=== PATIENT | male | born 1970 | race Caucasian/White ===

== ENCOUNTER 2023-10-21 09:50 | Outpatient (AMB) | payer OTHER, SELFPAY ==
--- NOTE | 2023-10-21 10:24 | A.OFFPC_ITS ---
Vital Signs 10/21/23 10:25 Height 6 ft 3 in Weight 193 lb BMI 24.1 BP 90/62 Blood Pressure Location Lt brachial Position Sitting Pulse 70 Pulse Source Pulse Oximeter Pulse Oximetry (%) 94 Oxygen Delivery Method Room Air Intake Visit Reasons: Estimating Manager Request PE Intake Note: Pt is here today as a New Patient to [facility] care Allergies Penicillins Allergy (Mild, Verified 11/10/23 09:19) hives Medication List - Last Reconciled 10/21/23 by Debbie Zuniga MD atorvastatin 40 mg PO BEDTIME omega 3-caf-keq-fish oil 60-90-500 mg (Fish Oil) 1 cap PO DAILY Tobacco use date assessed: 10/21/23 Dental Screening Dental Screen Date: 10/21/23 Did you have a dental visit in the last 12 months?: No Was dental information given to patient?: Patient declined HPI Estimating Manager Request PE HPI Details 53-year-old male, new to practice, here to establish care with new PCP. He has hyperlipidemia currently on atorvastatin 40 mg at night and takes [place] 3 fatty acid supplements. Has history of familial hypertriglyceridemia and has been off atorvastatin for the last 4 months, recently back on it a week ago, last fasting lipids done in [place] 2 weeks ago showed triglycerides and LDL cholesterol at 230 mg/dL. Has had 2 COVID vaccine and 1 booster does not get flu shots and has tetanus booster in last 4 years, and had the recombinant Shingrix vaccine 2 doses already. Patient states he had Cologuard testing approximately year and a half ago which came back negative. Complains of urinary frequency/urgency , but no dysuria, abdominal pain or back pain reported. [facility] Medical History History of fracture of clavicle History of fracture of left ankle Nocturia Familial hypertriglyceridemia Impaired fasting glucose Osteoarthritis Hyperlipidemia Surgical History History of bilateral hip arthroplasty Family History Father Substance use disorder Pancreatitis Alcoholism Familial hypertriglyceridemia Mother Mental health disorder Breast cancer, Onset Age: 72 Sister Mental health disorder Sister Mental health disorder Paternal Grandfather Familial hypertriglyceridemia Prostate cancer Social History Housing: House Patient Tobacco Use Status: Never used Tobacco e-Cigarette/Vaping Use: Never Used service: No Current occupational status: retired Cognitive needs: No Hearing needs: No Vision needs: Yes Questionnaire PHQ-9 Over the last 2 weeks, how often have you been bothered by any of the following problems? 1. Little interest or pleasure in doing things: not at all 2. Feeling down, depressed, or hopeless: not at all 3. Trouble falling or staying asleep, or sleeping too much: several days 4. Feeling tired or having little energy: not at all 5. Poor appetite or overeating: not at all 6. Feeling bad about yourself - or that you are a failure or have let yourself or your family down: not at all 7. Trouble concentrating on things, such as reading the newspaper or watching television: not at all 8. Moving or speaking so slowly that other people could have noticed. Or the opposite - being so fidgety or restless that you have been moving around a lot more than usual: not at all 9. Thoughts that you would be better off or of hurting yourself in some way: not at all Total score: 1 Depression Screening Interpretation: Negative Depression Screening Done: Yes 95327 - PHQ-9 Billing: Yes Source: Developed by Drs. Mustapha Yost, Gloria Barnhart, Jamie Espinal and colleagues, with an educational ruba from [employer]. Thrive Questionnaire Date Thrive assessed: 10/21/23 I am a: Patient What is your living situation today?: I have a steady place to live Within the past 12 months, did the food you bought not last and you didn't have the money to get more?: Never true Within the past 12 months, did you worry whether your food would run out before you got money to buy more?: Never true Do you have trouble paying for medicines?: No Do you have trouble getting transportation to medical appointments?: No Do you have trouble paying your heating and electricity bill?: No Do you have trouble taking care of your child, family member or friend?: No Do you have trouble with day-to-day activities such as bathing, preparing meals, shopping, managing finances, etc.?: No Are you currently unemployed and looking for a job?: Yes Are you interested in more education?: No THRIVE Score: 0 AUDIT C Alcohol Use Questionnaire (AUDIT-C) 1. How often do you have a drink containing alcohol?: Never Total Score: 0 GABBY-7 AMB Questionnaire GABBY-7 Date GABBY - 7 assessed: 10/21/23 Feeling nervous, anxious, or on edge: 1 = Several days Not being able to stop or control worryin = Not at all Worrying too much about different things: 1 = Several days Trouble relaxin = Several days Being so restless that it is hard to sit still: 0 = Not at all Becoming easily annoyed or irritable: 1 = Several days Feeling afraid as if something awful might happen: 0 = Not at all Total GABBY-7 score (0-4 normal; 5-9 mild; 10-14 moderate; 15-21 severe): 4 Source: Developed by Drs. Mustapha Yost, Gloria Barnhart, Jamie Espinal and colleagues, with an educational ruba from [employer]. GABBY-7 Assessment Billing GABBY-7 Assessment Tool: GABBY-7 Assessment 00924 Review of Systems Const Denies body aches, Denies fatigue, Denies headache(s) and Denies weakness Eyes Denies change in vision ENT Denies dizziness, Denies headache(s) and Denies nasal congestion Card Denies chest pain, Denies lightheadedness, Denies palpitations and Denies dyspnea Resp Denies chest congestion, Denies cough, Denies dyspnea and Denies wheezing GI Denies abdominal pain, Denies change in bowel habits and Denies heartburn Denies hematuria, Denies difficulty urinating and Denies dysuria Musc Reports arthralgias, Denies muscle weakness and Reports stiffness Skin/Breast Denies lesions and Denies rash Neuro Denies dizziness, Denies headache(s) and Denies weakness Psych Reports no additional complaints Endo Denies fatigue, Denies polydipsia, Denies polyuria and Denies palpitations [place]/Lymph Reports no additional complaints Aller/Immun Denies seasonal rhinorrhea and Denies wheezing Physical exam (Primary Care) Vital Signs: Last Vital Signs Pulse 70 10/21/23 10:25 BP 90/62 10/21/23 10:25 Pulse Ox 94 10/21/23 10:25 Oxygen Delivery Method Room Air 10/21/23 10:25 BMI result Body Mass Index 24.1 Tobacco/Smoking Status: Tobacco use Status Tobacco use date assessed 10/21/23 10/21/23 10:32 Patient Tobacco Use Status Never used Tobacco 10/21/23 10:32 e-Cigarette/Vaping Use Never Used 10/21/23 10:32 PHQ-9: PHQ-9 Score PHQ-9: Total score 7 10/21/23 10:34 Depression Screening Interpretation: Negative Thrive Assessment: Date of Thrive Assessment Date Thrive assessed 10/21/23 10/21/23 10:34 Const General: comfortable, no acute distress and alert Orientation/consciousness: patient oriented x3 Limitations: no limitations HENMT Ears: external ears normal, TM's normal bilaterally and EAC's normal General nose exam: Normal external nose present and No nasal discharge present Mouth: Normal oral and palatal mucosa present, oropharynx normal and moist mucous membranes Eyes General: appearance normal, both eyes and all related structures Conjunctivae: conjunctivae normal Sclerae: sclerae normal Pupils: Equal, round and reactive pupils present EOM: EOMs intact bilaterally Neck Neck: Yes full ROM, Yes no lymphadenopathy and Yes supple Resp Effort & Inspection: normal respiratory effort and able to speak in complete sentences Auscultation: clear to auscultation bilaterally Cardio Rate: regular rate Rhythm: regular rhythm Heart sounds: S1 normal heart sound present and S2 normal heart sound present GI Palpation (GI): Soft to palpation, nontender and no masses Auscultation: normal bowel sounds Back/Spine/Pelvis Back: No back tenderness Skin General skin exam: no rashes or lesions noted Neuro General: patient oriented x3, gait normal, tone normal, moves all extremities, Normal light touch and pain sensation and no focal motor deficits Cranial nerves: Yes CN's II-XII intact bilaterally and Yes Equal, round and reactive pupils present Cognition (Neuro): normal cognition Extrem General: Yes full ROM, Yes no joint enlargement, Yes no clubbing, cyanosis or edema and Yes no calf tenderness Psych Appearance: grossly normal and well kempt Mental Status: mental status grossly normal Speech and movement: Normal speech and movement present Affect: normal affect Attitude: cooperative Thought process: Normal thought process present Thought content: Normal thought content present, suicidality and no homicidality Assessment and Plan Assessment & Plan (1) Impaired fasting glucose: Code(s): R73.01 - Impaired fasting glucose (2) Osteoarthritis: Code(s): M19.90 - Unspecified osteoarthritis, unspecified site Qualifiers: Osteoarthritis location: unspecified site Osteoarthritis type: primary Qualified Code(s): M19.91 - Primary osteoarthritis, unspecified site (3) Familial hypertriglyceridemia: Code(s): E78.1 - Pure hyperglyceridemia (4) Urinary hesitancy: Code(s): R39.11 - Hesitancy of micturition (5) Urinary urgency: Code(s): R39.15 - Urgency of urination Plan Fasting labs ordered, continued on current medication namely atorvastatin and [place] 3 fatty acid supplements, reinforced importance of following a low- cholesterol diet and getting regular exercise. Orders: Orders Lipid Panel 12/02/23 R73.01 - Impaired fasting glucose, M19.90 - Unspecified osteoarthritis, unspecified site, E78.1 - Pure hyperglyceridemia Comprehensive [place]. Panel Fast 12/02/23 R73.01 - Impaired fasting glucose, M19.90 - Unspecified osteoarthritis, unspecified site, E78.1 - Pure hyperglyceridemia Uric Acid 12/02/23 R73.01 - Impaired fasting glucose, M19.90 - Unspecified osteoarthritis, unspecified site, E78.1 - Pure hyperglyceridemia PSA,Total (Free>4and<10) 10/21/23 R35.1 - Nocturia, R39.11 - Hesitancy of micturition, R39.15 - Urgency of urination Vitamin D 25-OH Total 12/02/23 R73.01 - Impaired fasting glucose, M19.90 - Unspecified osteoarthritis, unspecified site, E78.1 - Pure hyperglyceridemia Hemoglobin A1c 12/02/23 R73.01 - Impaired fasting glucose, M19.90 - Unspecified osteoarthritis, unspecified site, E78.1 - Pure hyperglyceridemia Coding Level of Care Code New Pt Level 4 (19762) Diagnoses Impaired fasting glucose R73.01 Primary osteoarthritis, unspecified site M19.91 Osteoarthritis location: unspecified site Osteoarthritis type: primary Familial hypertriglyceridemia E78.1 Urinary hesitancy R39.11 Urinary urgency R39.15 Additional Codes GABBY-7 Assessment Billing - GABBY-7 Assessment Tool: GABBY-7 Assessment [id number] ([id number])
[2023-10-21 10:25] VITALS: BP 90/62; PULSE 70; O2SAT 94; BMI 24.1
== END 2023-10-21 13:19 | disposition home or self-care (01) ==
PROVIDERS: PCP Internal Medicine; Visit Provider Internal Medicine
DX: R73.01 Impaired fasting glucose (principal); M19.91 Primary osteoarthritis, unspecified site; E78.1 Pure hyperglyceridemia; R39.11 Hesitancy of micturition; R39.15 Urgency of urination
CPT/HCPCS: 99204

== ENCOUNTER 2023-10-29 10:51 | Outpatient (AMB) | payer OTHER, SELFPAY ==
[2023-10-29 11:41] VITALS: BP 120/80; PULSE 83; TEMP 36.7; O2SAT 96; BMI 23.9
--- NOTE | 2023-10-29 11:41 | MHC.OFFWIV ---
Intake Vital Signs 10/29/23 11:41 Height 6 ft 3 in Weight 191 lb BMI 23.9 BP 120/80 Blood Pressure Location Lt brachial Position Sitting Pulse 83 Pulse Source Pulse Oximeter Temp 98.1 F Temp Source Temporal Artery Scan Pulse Oximetry (%) 96 Oxygen Delivery Method Room Air Intake Visit Reasons: EP congestion, ringing ears (masked) Intake Note: pt is her today for congestion ringing ears started 2 weeks ago Patient Tobacco Use Status: Never used Tobacco Allergies Penicillins Allergy (Mild, Verified 10/29/23 11:44) hives Do you need a note to return to daycare/school/sports/work: No HPI EP congestion, ringing ears (masked) HPI Details This is a 53-year-old male patient who presents to the walk-in clinic today with a 2 week history of nasal and sinus congestion, productive cough with yellow/green sputum, and has now developed pressure and a ringing sensation in his ears. He states this started with a cold virus about 2 weeks ago after traveling. Treated this with [id number]-lrxocqg cold/flu products, and although he does feel somewhat better, he continues to have symptoms as described. Denies any fever or chills. Denies any shortness of breath. Denies any GI symptoms. [facility] Medical History History of fracture of clavicle History of fracture of left ankle Nocturia Familial hypertriglyceridemia Impaired fasting glucose Osteoarthritis Hyperlipidemia Surgical History History of bilateral hip arthroplasty Family History Father Substance use disorder Pancreatitis Alcoholism Familial hypertriglyceridemia Mother Mental health disorder Breast cancer, Onset Age: 72 Sister Mental health disorder Sister Mental health disorder Paternal Grandfather Familial hypertriglyceridemia Prostate cancer Social History Housing: House Patient Tobacco Use Status: Never used Tobacco e-Cigarette/Vaping Use: Never Used service: No Current occupational status: retired Cognitive needs: No Hearing needs: No Vision needs: Yes Review of Systems Const All systems reviewed & are unremarkable except as noted in HPI and below Physical Exam Vital Signs: Last Vital Signs Temp 98.1 F 10/29/23 11:41 Pulse 83 10/29/23 11:41 BP 120/80 10/29/23 11:41 Pulse Ox 96 10/29/23 11:41 Oxygen Delivery Method Room Air 10/29/23 11:41 BMI result Body Mass Index 23.9 Const General: cooperative and no acute distress HEENT Head: Yes normal to inspection Ears: hearing grossly normal bilaterally, external ears normal and TM abnormal (Bilateral TM erythema, serosang effusion, R>L) wth effusion General nose exam: Normal external nose present and Nasal discharge present mucoid Face and sinus: Yes sinus tenderness ( frontal and maxillary) Throat: Yes posterior oropharynx abnormal (mild erythema) Neck Neck: Yes no lymphadenopathy Resp Effort & Inspection: normal respiratory effort Auscultation: clear to auscultation bilaterally Cardio Rate: regular rate Rhythm: regular rhythm Skin General skin exam: no rashes or lesions noted Extrem General: Yes capillary refill normal and Yes no clubbing, cyanosis or edema Psych Appearance: grossly normal Mental Status: mental status grossly normal Speech and movement: Normal speech and movement present Assessment & Plan Assessment & Plan (1) Bilateral otitis media with effusion: Code(s): H65.93 - Unspecified nonsuppurative otitis media, bilateral Plan: Patient has sinusitis with bilateral OM. PCN allergy listed, however patient reports this was only hives and he was very young, and he is unsure of validity of this allergy. He would like to try the augmentin. We reviewed risks and signs/symptoms of allergic reaction. If this occurs he will stop medication and take antihistamine such as benadryl and call office for change in rx. He can continue to take Tylenol/Motrin as needed for symptom management. He will return to the clinic or PCP if he does not improve with treatment. Medications: New amoxicillin-pot clavulanate 875-125 mg Take twice a day for 7 days 1 tab PO BID 7 days 14 tabs 0RF H65.92 - Unspecified nonsuppurative otitis media, left ear Coding Level of Care Code Est Pt Level 4 (68201) Diagnoses Bilateral otitis media with effusion H65.93
== END 2023-10-29 12:35 | disposition home or self-care (01) ==
PROVIDERS: PCP Internal Medicine; Visit Provider Nurse Practitioner Family
DX: H65.93 Unspecified nonsuppurative otitis media, bilateral (principal)
CPT/HCPCS: 99214

== ENCOUNTER 2023-11-10 09:08 | Outpatient (AMB) | payer OTHER, SELFPAY ==
[2023-11-10 09:17] VITALS: BP 100/72; PULSE 81; O2SAT 96; BMI 23.6
--- NOTE | 2023-11-10 09:17 | MHC.OFFWIV ---
Intake Vital Signs 11/10/23 09:17 Height 6 ft 3 in Weight 189 lb 3 oz BMI 23.6 BP 100/72 Blood Pressure Location Rt brachial Position Sitting Pulse 81 Pulse Source Pulse Oximeter Pulse Oximetry (%) 96 Oxygen Delivery Method Room Air Intake Visit Reasons: EP ?Ear infection Patient Tobacco Use Status: Never used Tobacco Allergies Penicillins Allergy (Mild, Verified 11/10/23 09:19) hives Medication List - Last Reconciled 11/10/23 by Gael Reed MD atorvastatin 40 mg PO BEDTIME omega 4-klt-zfi-fish oil 60-90-500 mg (Fish Oil) 1 cap PO DAILY Do you need a note to return to daycare/school/sports/work: No HPI EP ?Ear infection HPI Details Patient is a 53-year-old gentleman came in today to be evaluated for possible sinus infection Which has started 3 weeks ago Patient says that after the sinus pain over his cheeks he started having pain in his ears so he was evaluated in walk-in clinic and was prescribed antibiotic He felt better but now his symptoms are back. He still have fullness in his ear and having green discharge from his nose with postnasal drip There is no fever no chills no shortness a breath there is no cough On examination his ears showed no signs of infection He is tender over maxillary sinus on the right side I am treating him with a course of azithromycin patient is already using saline to keep his sinuses clean [facility] Medical History History of fracture of clavicle History of fracture of left ankle Nocturia Familial hypertriglyceridemia Impaired fasting glucose Osteoarthritis Hyperlipidemia Surgical History History of bilateral hip arthroplasty Family History Father Substance use disorder Pancreatitis Alcoholism Familial hypertriglyceridemia Mother Mental health disorder Breast cancer, Onset Age: 72 Sister Mental health disorder Sister Mental health disorder Paternal Grandfather Familial hypertriglyceridemia Prostate cancer Social History Housing: House Patient Tobacco Use Status: Never used Tobacco e-Cigarette/Vaping Use: Never Used service: No Current occupational status: retired Cognitive needs: No Hearing needs: No Vision needs: Yes Review of Systems Const All systems reviewed & are unremarkable except as noted in HPI and below Physical Exam Vital Signs: Last Vital Signs Pulse 81 11/10/23 09:17 BP 100/72 11/10/23 09:17 Pulse Ox 96 11/10/23 09:17 Oxygen Delivery Method Room Air 11/10/23 09:17 BMI result Body Mass Index 23.6 Const General: no acute distress Orientation/consciousness: patient oriented x3 HEENT Other: Years shows no signs of infection, soreness with pressure right maxillary sinus Eyes General: appearance normal, both eyes and all related structures Resp Effort & Inspection: normal respiratory effort and able to speak in complete sentences Auscultation: clear to auscultation bilaterally Cardio Other: S1 S2 Neuro General: patient oriented x3 Psych Mental Status: mental status grossly normal Assessment & Plan Assessment & Plan (1) Acute sinusitis: Code(s): J01.90 - Acute sinusitis, unspecified Qualifiers: Sinusitis location: maxillary Recurrence: non-recurrent Qualified Code(s): J01.00 - Acute maxillary sinusitis, unspecified Plan Patient is a 53-year-old gentleman came in today to be evaluated for possible sinus infection Which has started 3 weeks ago Patient says that after the sinus pain over his cheeks he started having pain in his ears so he was evaluated in walk-in clinic and was prescribed antibiotic He felt better but now his symptoms are back. He still have fullness in his ear and having green discharge from his nose with postnasal drip There is no fever no chills no shortness a breath there is no cough On examination his ears showed no signs of infection He is tender over maxillary sinus on the right side I am treating him with a course of azithromycin patient is already using saline to keep his sinuses clean Medications: New azithromycin Take 2 tablets today then 1 daily 250 mg PO ONCE 6 tabs 0RF 5 days J06.9 - Acute upper respiratory infection, unspecified Coding Level of Care Code Est Pt Level 3 (77953) Diagnoses Acute non-recurrent maxillary sinusitis J01.00 Sinusitis location: maxillary Recurrence: non-recurrent
== END 2023-11-10 10:18 | disposition home or self-care (01) ==
PROVIDERS: PCP Internal Medicine; Visit Provider Internal Medicine
DX: J01.00 Acute maxillary sinusitis, unspecified (principal)
CPT/HCPCS: 99213

== ENCOUNTER 2023-12-09 09:15 | Outpatient (REF) | payer OTHER, SELFPAY ==
[2023-12-09 13:35] LABS: Estimated Average Glucose 111 mg/dL; Hemoglobin A1c % 5.5 % (<6.0)
[2023-12-09 14:03] LABS: Alanine Aminotransferase 28 U/L (0-40); Albumin Level 4.3 g/dL (3.5-5.0); Alkaline Phosphatase 74 U/L (39-117); Anion Gap 15 (12-20); Aspartate Amino Transferase 28 U/L (5-37); Bilirubin Total 0.6 mg/dL (0.0-1.0); Blood Urea Nitrogen 14 mg/dL (9-16); Calcium 9.5 mg/dL (8.4-10.2); Carbon Dioxide 26 mmol/L (22-29); Chloride 105 mmol/L (96-108); Cholesterol 148 mg/dL (<200); Estimated Glomerular Filt Rate > 60; Glucose Fasting 96 mg/dL (60-99); HDL Cholesterol 58 mg/dL (>40); LDL Cholesterol Calculated 70 mg/dL (<100); Potassium 4.3 mmol/L (3.3-5.1); Sodium 142 mmol/L (135-145); Total Protein 7.5 g/dL (6.5-8.0); Triglycerides 101 mg/dL (<150); Uric Acid 6.7 mg/dL (3.4-7.0); Vitamin D 25-OH Total 96.4 ng/mL (>30)
== END 2023-12-09 09:16 | disposition home or self-care (01) ==
LOC: HO.HMGCLDS 09:15
PROVIDERS: PCP Internal Medicine; Visit Provider Internal Medicine
DX: R73.01 Impaired fasting glucose (principal); M19.90 Unspecified osteoarthritis, unspecified site; E78.1 Pure hyperglyceridemia
CPT/HCPCS: 36415; 80053; 80061; 82306; 83036; 84550

== ENCOUNTER 2023-12-21 10:51 | Outpatient (AMB) | payer OTHER, SELFPAY ==
[2023-12-21 11:15] VITALS: BP 100/60; PULSE 65; O2SAT 96; BMI 23.7
--- NOTE | 2023-12-21 11:15 | MHC.PC.OV ---
Vital Signs 12/21/23 11:15 Height 6 ft 3 in Weight 190 lb BMI 23.7 BP 100/60 Blood Pressure Location Rt brachial Position Sitting Pulse 65 Pulse Source Pulse Oximeter Pulse Oximetry (%) 96 Oxygen Delivery Method Room Air Intake Visit Reasons: follow up on labs 12/24 per AE Intake Note: Pt is here today for his lab f/u Allergies Penicillins Allergy (Mild, Verified 12/28/23 04:37) hives Medication List - Last Reconciled 12/28/23 by Debbie Zuniga MD atorvastatin 40 mg PO BEDTIME doxycycline hyclate 100 mg PO Q12H omega 4-dsx-wfn-fish oil 60-90-500 mg (Fish Oil) 1 cap PO DAILY Tobacco use date assessed: 12/21/23 Dental Screening Dental Screen Date: 12/21/23 Did you have a dental visit in the last 12 months?: No Was dental information given to patient?: No HPI follow up on labs 12/24 per AE HPI Details 53-year-old male with history of familial hypertriglyceridemia, impaired fasting glucose, osteoarthritis, here today for follow-up. Had recent fasting labs done which showed results within normal limits , with improvement of his cholesterol levels since starting atorvastatin. He has been compliant with healthy eating habits, is very active, plays lot of sports and goes to the gym regularly. Requesting to be referred to dermatology for skin cancer screening. Had a recent tick bite while walking his dog. Denies any worsening joint pain, fever, headache, no nausea, but did is see a bull's-eye rash on his leg where he had his bite. He has been diagnosed to have internal and external hemorrhoids in the past, now complaining of frequent bleeding in hi rectal area especially when he strains are during a bowel movement. Complaining of frequent anal itching and irritation. [facility] Medical History (Updated 12/28/23 @ 04:47 by Debbie Zuniga MD) Tinnitus Mixed dyslipidemia Internal and external bleeding hemorrhoids History of fracture of clavicle History of fracture of left ankle Nocturia Familial hypertriglyceridemia Impaired fasting glucose Osteoarthritis Hyperlipidemia Surgical History History of bilateral hip arthroplasty Family History Father Substance use disorder Pancreatitis Alcoholism Familial hypertriglyceridemia Mother Mental health disorder Breast cancer, Onset Age: 72 Sister Mental health disorder Sister Mental health disorder Paternal Grandfather Familial hypertriglyceridemia Prostate cancer Social History Housing: House Patient Tobacco Use Status: Never used Tobacco e-Cigarette/Vaping Use: Never Used service: No Current occupational status: retired Cognitive needs: No Hearing needs: No Vision needs: Yes Questionnaire PHQ-9 Over the last 2 weeks, how often have you been bothered by any of the following problems? Depression Screening Interpretation: Negative Depression Screening Done: Yes Source: Developed by Drs. Mustapha Yost, Gloria Barnhart, Jamie Espinal and colleagues, with an educational ruba from [employer]. Thrive Questionnaire Date Thrive assessed: 10/21/23 GABBY-7 AMB Questionnaire GABBY-7 Date GABBY - 7 assessed: 10/21/23 Source: Developed by Drs. Mustapha Yost, Gloria Barnhart, Jamie Espinal and colleagues, with an educational ruba from [employer]. Review of Systems Const Denies body aches, Denies fatigue, Denies headache(s) and Denies weakness Eyes Denies change in vision ENT Denies dizziness, Denies headache(s) and Denies nasal congestion Card Denies chest pain, Denies lightheadedness, Denies palpitations and Denies dyspnea Resp Denies chest congestion, Denies cough, Denies dyspnea and Denies wheezing GI Denies abdominal pain, Denies change in bowel habits and Denies heartburn Denies hematuria, Denies oliguria, Denies difficulty urinating, Denies erectile dysfunction, Denies dysuria, Reports nocturia, Reports urinary frequency and Denies urinary incontinence Musc Reports arthralgias, Denies muscle weakness and Reports stiffness Skin/Breast Details: Hyperpigmented macule noted on cheek, and scattered on upper back Neuro Denies dizziness, Denies headache(s) and Denies weakness Psych Reports no additional complaints Endo Denies fatigue, Denies polydipsia, Denies polyuria and Denies palpitations Cody/Lymph Reports no additional complaints Aller/Immun Denies seasonal rhinorrhea and Denies wheezing Physical exam (Primary Care) Vital Signs: Last Vital Signs Pulse 65 12/21/23 11:15 BP 100/60 12/21/23 11:15 Pulse Ox 96 12/21/23 11:15 Oxygen Delivery Method Room Air 12/21/23 11:15 BMI result Body Mass Index 23.7 Tobacco/Smoking Status: Tobacco use Status Tobacco use date assessed 12/21/23 12/21/23 11:21 Patient Tobacco Use Status Never used Tobacco 12/21/23 11:16 e-Cigarette/Vaping Use Never Used 12/21/23 11:16 Depression Screening Interpretation: Negative Thrive Assessment: Date of Thrive Assessment Date Thrive assessed 10/21/23 12/21/23 11:16 Const General: comfortable, no acute distress and alert Orientation/consciousness: patient oriented x3 Limitations: no limitations HENMT Ears: external ears normal, TM's normal bilaterally and EAC's normal General nose exam: Normal external nose present and No nasal discharge present Mouth: Normal oral and palatal mucosa present, oropharynx normal and moist mucous membranes Eyes General: appearance normal, both eyes and all related structures Conjunctivae: conjunctivae normal Sclerae: sclerae normal Pupils: Equal, round and reactive pupils present EOM: EOMs intact bilaterally Neck Neck: Yes full ROM, Yes no lymphadenopathy and Yes supple Resp Effort & Inspection: normal respiratory effort and able to speak in complete sentences Auscultation: clear to auscultation bilaterally Cardio Rate: regular rate Rhythm: regular rhythm Heart sounds: S1 normal heart sound present and S2 normal heart sound present GI Palpation (GI): Soft to palpation, nontender and no masses Auscultation: normal bowel sounds Back/Spine/Pelvis Back: No back tenderness Skin Other: Hyperpigmented macule on cheek and scattered on upper back Neuro General: patient oriented x3, gait normal, tone normal, moves all extremities, Normal light touch and pain sensation and no focal motor deficits Cranial nerves: Yes CN's II-XII intact bilaterally and Yes Equal, round and reactive pupils present Cognition (Neuro): normal cognition Extrem General: Yes full ROM, Yes no joint enlargement, Yes no clubbing, cyanosis or edema and Yes no calf tenderness Psych Appearance: grossly normal and well kempt Mental Status: mental status grossly normal Speech and movement: Normal speech and movement present Affect: normal affect Attitude: cooperative Thought process: Normal thought process present Thought content: Normal thought content present Results Reviewed Results Reviewed: Name: Jeison Romero Age/Sex: 53/M : 1970 Unit#: [id number] Attend Dr: Debbie Zuniga MD Re12/09/23 Status: DEP REF Location: [facility] Disch: SPEC : [id number] DONNY: 12/09/23 STATUS: COMP REQ : [id number] RECD: 12/09/23-[address]: Debbie Zuniga MD COMP: 12/09/23-1402 ENTERED: 12/09/23-1002 [facility] DR: ORDERED: CMP Fast, Uric, Lipid Panel, Vitamin D 25-OH Test Result Flag Reference Sodium 142 135-145 mmol/L Potassium 4.3 3.3-5.1 mmol/L CL 105 96-108 mmol/L CO2 26 22-29 mmol/L Gap 15 12-20 BUN 14 9-16 mg/dL Creat 0.85 0.5-1.4 mg/dL EGFR > 60 NOTE: For -[place] individuals, multiply the result by 1.210. Chronic Kidney Disease: Estimated GFR < 60 mL/min/1.73m2 Severe Kidney Disease: Estimated GFR < 15 mL/min/1.73m2 FBS 96 60-99 mg/dL Uric Acid 6.7 3.4-7.0 mg/dL CA 9.5 8.4-10.2 mg/dL Total Bili 0.6 0.0-1.0 mg/dL AST (GOT) 28 5-37 U/L ALT (GPT) 28 0-40 U/L Protein, Total 7.5 6.5-8.0 g/dL Alb 4.3 3.5-5.0 g/dL Triglyceride 101 <150 mg/dL Desirable Triglyceride: less than 150 mg/dL Borderline High Triglyceride 150-199 mg/dL High Triglyceride: 200-499 mg/dL Very High Triglyceride: greater than or equal to 5OO mg/dL Cholesterol 148 <200 mg/dL Desirable Cholesterol: less than 200 mg/dL Borderline High Cholesterol: 200-239 mg/dL High Cholesterol: greater than 239 mg/dL LDL Calculated 70 <100 mg/dL Desirable LDL: less than 100 mg/dL Near Optimal/Above Optimal LDL: 110-129 mg/dL Borderline High LDL: 130-159 mg/dL High LDL: 160-189 mg/dL Very High LDL: greater than or equal to 190 mg/dL HDL 58 >40 mg/dL Desirable HDL: greater than 40 mg/dL Note: This HDL assay may give artificially low results in patients with liver disease. Alk Phos 74 39-117 U/L Vit D 25-OH Tot 96.4 >30 ng/mL Health Based Reference Values* < 20 ng/mL Deficient 20-30 ng/mL Insufficient > 30 ng/mL Sufficient Assessment and Plan Assessment & Plan (1) Encounter for screening for malignant neoplasm of colon: Code(s): Z12.11 - Encounter for screening for malignant neoplasm of colon Plan: GI consult ordered for screening colonoscopy (2) Internal and external bleeding hemorrhoids: Code(s): K64.4 - Residual hemorrhoidal skin tags; K64.8 - Other hemorrhoids Plan: Referral to General surgery ordered (3) Impaired fasting glucose: Code(s): R73.01 - Impaired fasting glucose (4) Familial hypertriglyceridemia: Code(s): E78.1 - Pure hyperglyceridemia (5) Skin lesion of back: Code(s): L98.9 - Disorder of the skin and subcutaneous tissue, unspecified Plan: Referral to Dermatology ordered (6) Skin lesion of face: Code(s): L98.9 - Disorder of the skin and subcutaneous tissue, unspecified Plan: Referred to dermatology clinic (7) Screening for Malignant Neoplasm of Skin: Code(s): Z12.83 - Encounter for screening for malignant neoplasm of skin Plan: Referral to Dermatology or (8) Tick bite of lower leg: Code(s): S80.869A - Insect bite (nonvenomous), unspecified lower leg, initial encounter; W57.XXXA - Bitten or stung by nonvenomous insect and other nonvenomous arthropods, initial encounter Plan: Lyme titer ordered (9) Increased frequency of urination: Code(s): R35.0 - Frequency of micturition Plan: Ordered a urinalysis with reflex culture and sensitivity (10) Mixed dyslipidemia: Code(s): E78.2 - Mixed hyperlipidemia Plan: Continue fish oil supplements 1 capsule daily Decrease atorvastatin dosing to 1 tablet every 2 days, and repeat another fasting lipid panel in June 2024 (11) Tinnitus: Code(s): H93.19 - Tinnitus, unspecified ear Qualifiers: Laterality: unspecified laterality Qualified Code(s): H93.19 - Tinnitus, unspecified ear Plan: Advised to stay well-hydrated, will observe for now if starting to become a problem will refer to ENT for further evaluation and management Orders: Orders Lipid Panel 06/03/24 E78.1 - Pure hyperglyceridemia, R73.01 - Impaired fasting glucose Alanine Aminotransferase 06/03/24 E78.1 - Pure hyperglyceridemia, R73.01 - Impaired fasting glucose Aspartate Amino Transferase 06/03/24 E78.1 - Pure hyperglyceridemia, R73.01 - Impaired fasting glucose Glucose Fasting 06/03/24 E78.1 - Pure hyperglyceridemia, R73.01 - Impaired fasting glucose Lyme IgG/IgM w/reflex to WB 12/21/23 S80.869A - Insect bite (nonvenomous), unspecified lower leg, initial encounter, W57.XXXA - Bitten or stung by nonvenomous insect and other nonvenomous arthropods, initial encounter UA CC w/rflx Micro + Cult 12/21/23 R35.0 - Frequency of micturition Referrals General Surgery Referral E78.1 - Pure hyperglyceridemia, K64.4 - Residual hemorrhoidal skin tags, K64.8 - Other hemorrhoids, R73.01 - Impaired fasting glucose Gastroenterology Referral E78.1 - Pure hyperglyceridemia, R73.01 - Impaired fasting glucose, Z12.11 - Encounter for screening for malignant neoplasm of colon Dermatology Referral L98.9 - Disorder of the skin and subcutaneous tissue, unspecified, Z12.83 - Encounter for screening for malignant neoplasm of skin Coding Level of Care Code Est Pt Level 4 (90401) Diagnoses Encounter for screening for malignant neoplasm of colon Z12.11 Internal and external bleeding hemorrhoids K64.4; K64.8 Impaired fasting glucose R73.01 Familial hypertriglyceridemia E78.1 Skin lesion of back L98.9 Skin lesion of face L98.9 Screening for Malignant Neoplasm of Skin Z12.83 Tick bite of lower leg S80.869A; W57.XXXA Increased frequency of urination R35.0 Mixed dyslipidemia E78.2 Tinnitus, unspecified laterality H93.19 Laterality: unspecified laterality
== END 2023-12-21 12:25 | disposition home or self-care (01) ==
PROVIDERS: PCP Internal Medicine; Visit Provider Internal Medicine
DX: Z12.11 Encounter for screening for malignant neoplasm of colon (principal); K64.4 Residual hemorrhoidal skin tags; K64.8 Other hemorrhoids; R73.01 Impaired fasting glucose; E78.1 Pure hyperglyceridemia; L98.9 Disorder of the skin and subcutaneous tissue, unspecified; Z12.83 Encounter for screening for malignant neoplasm of skin; S80.869A Insect bite (nonvenomous), unspecified lower leg, initial encounter; W57.XXXA Bitten or stung by nonvenomous insect and other nonvenomous arthropods, initial encounter; R35.0 Frequency of micturition; E78.2 Mixed hyperlipidemia; H93.19 Tinnitus, unspecified ear
CPT/HCPCS: 99214

== ENCOUNTER 2023-12-21 11:54 | Outpatient (REF) | payer OTHER, SELFPAY ==
[2023-12-21 13:26] LABS: Appearance Urine Cloudy; Color Urine Yellow; Glucose Urine UA Negative (Negative); Leukocyte Esterase Urine Negative (Negative); Nitrite Urine Negative (Negative); PH 7.5 (5.0-9.0); Specific Gravity - Urine 1.015 (1.005-1.025); Urine Blood Negative (Negative); Urine Ketones Negative (Negative); Urine Protein Negative (Neg-Trace)
[2023-12-22 15:13] LABS: Lyme Blot 9.59 index
[2023-12-24 12:08] LABS: 18 KD (IgG) Band REACTIVE; 23 KD (IgG) Band NON-REACTIVE; 23 KD (IgM) Band REACTIVE; 28 KD (IgG) Band NON-REACTIVE; 30 KD (IgG) Band REACTIVE; 39 KD (IgM) Band NON-REACTIVE; 39KD (IgG) Band REACTIVE; 41 KD (IgM) Band REACTIVE; 41KD (IgG) Band REACTIVE; 45 KD (IgG) Band REACTIVE; 58 KD (IgG) Band REACTIVE; 66 KD (IgG) Band REACTIVE; 93 KD (IgG) Band REACTIVE; Lyme Abs Screen POSITIVE; Lyme IgG Blot Interp POSITIVE (NEGATIVE); Lyme IgM Blot Interp POSITIVE (NEGATIVE)
== END 2023-12-21 11:55 | disposition home or self-care (01) ==
LOC: HO.HMGCLDS 11:54
PROVIDERS: PCP Internal Medicine; Visit Provider Internal Medicine
DX: S80.869A Insect bite (nonvenomous), unspecified lower leg, initial encounter (principal); W57.XXXA Bitten or stung by nonvenomous insect and other nonvenomous arthropods, initial encounter; R35.0 Frequency of micturition; Y93.9 Activity, unspecified; Y92.9 Unspecified place or not applicable; Y99.9 Unspecified external cause status
CPT/HCPCS: 36415; 81003; 86617; 86618

== ENCOUNTER 2024-01-06 14:19 | Outpatient (AMB) | payer OTHER, SELFPAY ==
[2024-01-06 14:27] VITALS: BMI 23.7
--- NOTE | 2024-01-06 14:27 | MHC.OFFVIS ---
Vital Signs 01/06/24 14:27 Height 6 ft 3 in Weight 190 lb 0.016 oz BMI 23.7 Intake Visit Reasons: hemorrhoids Intake Note: This patient presents for an assessment for hemorrhoids. Patient c/o: reports rectal pain, reports had rectal bleeding but this has improved, reports no constipation. 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 He says that he has had hemorrhoids for maybe 10 years now. He says that he used to have prolapse of his hemorrhoids but this has improved. However, recently he says he has noticed this hemorrhoids to be big again and has caused him discomfort whenever he is riding his bike. He denies any bleeding. He denies history of constipation. He says that he felt the hemorrhoid to be much more swollen about a month ago. He had significant pain around that time. This has since resolved. [facility] Medical History (Updated 01/06/24 @ 14:55 by Bakari Saenz MD) Thrombosed external hemorrhoid Tinnitus Mixed dyslipidemia Internal and external bleeding hemorrhoids History of fracture of clavicle History of fracture of left ankle Nocturia Familial hypertriglyceridemia Impaired fasting glucose Osteoarthritis Hyperlipidemia Surgical History History of bilateral hip arthroplasty Family History Father Substance use disorder Pancreatitis Alcoholism Familial hypertriglyceridemia Mother Mental health disorder Breast cancer, Onset Age: 72 Sister Mental health disorder Sister Mental health disorder Paternal Grandfather Familial hypertriglyceridemia Prostate cancer Social History Housing: House Patient Tobacco Use Status: Never used Tobacco e-Cigarette/Vaping Use: Never Used service: No Current occupational status: retired Cognitive needs: No Hearing needs: No Vision needs: Yes Review of Systems Const Denies chills and Denies fever(s) Card Denies chest pain, Denies dyspnea and Denies dyspnea on exertion Resp Denies cough, Denies dyspnea and Denies dyspnea on exertion GI Denies hematochezia and Denies change in bowel habits Denies hematuria and Denies difficulty urinating Musc Denies back pain and Denies limited range of motion Neuro Denies focal weakness and Denies convulsions Psych Denies depression and Denies mood swings Physical Exam Vital Signs: BMI result Body Mass Index 23.7 Const General: comfortable and no acute distress Orientation/consciousness: patient oriented x3 Neck Neck: Yes no lymphadenopathy Resp Auscultation: clear to auscultation bilaterally Cardio Rhythm: regular rhythm GI Other: Rectal exam shows a large external hemorrhoid, about 1.5 cm in size, nontender Palpation (GI): Soft to palpation, nontender and no guarding Neuro General: patient oriented x3 Office Procedures Anoscopy He was in noreen-knife position. The anoscope was gently inserted. A full examination of the anal canal was done. He did have some smaller mixed internal external hemorrhoidal columns on the right side. There was this thrombosed external hemorrhoid, about 2 cm on the left. This is nontender. There were no lesions. There was no fissure or ulceration There was no bleeding or induration. [id number] Assessment & Plan Assessment & Plan (1) Thrombosed external hemorrhoid: Code(s): K64.5 - Perianal venous thrombosis Category: Medical Plan He has a large thrombosed hemorrhoid as described above. I explained the option of hemorrhoidectomy for severe symptoms. I discussed the technique of exam under anesthesia and hemorrhoidectomy. I reviewed the risks including but not limited to bleeding, infections, postop pain, poor healing, as well as the benefits and alternatives. I reviewed with him what to expect postoperatively. He says that the hemorrhoid does not bother him now although he did have pain at onset last month. He would like to hold off on surgery for now but I will see him again next month to see how is doing. If does understand that he may have recurrent problems with regards to his external hemorrhoid. I advised him on doing hot Sitz baths or warm soaks frequently. Coding Level of Care Code New Pt Level 3 (54456) Diagnoses Thrombosed external hemorrhoid K64.5 CPT Codes Details - CPT: [id number] ([id number])
== END 2024-01-06 15:09 | disposition home or self-care (01) ==
PROVIDERS: PCP Internal Medicine; Referring Provider Internal Medicine; Visit Provider Surgery
DX: K64.5 Perianal venous thrombosis (principal)
CPT/HCPCS: 46600; 99203

== ENCOUNTER → 2024-01-06 14:19 | Outpatient (BNVA) | payer OTHER, SELFPAY | PROVIDERS: PCP Internal Medicine; Referring Provider Internal Medicine; Visit Provider Surgery | DX: K64.5 Perianal venous thrombosis (principal) | CPT/HCPCS: 46600; 99202 ==

== ENCOUNTER 2024-03-01 10:11 | Outpatient (AMB) | payer OTHER, SELFPAY ==
--- NOTE | 2024-03-01 10:15 | MHC.OFFVIS ---
Vital Signs 03/01/24 10:16 Height 6 ft 3 in Weight 194 lb 0.108 oz BMI 24.2 BP 108/70 Blood Pressure Location Rt brachial Position Sitting Pulse 72 Intake Visit Reasons: Colonoscopy screening Intake Note: Patient in office today as a new patient for colonoscopy screening. CC: Patient reports that for about a week he has been having diarrhea after eating. He also reports occasional heartburn. Allergies Penicillins Allergy (Mild, Verified 03/01/24 10:19) hives HPI HPI Colonoscopy screening: Details: 53-year-old male here for preprocedural meeting to discuss a screening colonoscopy. He is referred by Debbie Zuniga. PMX High cholesterol Tinnitus History of thrombosed external hemorrhoid History of clavicle and ankle fracture Generalized osteoarthritis * SURGICAL HISTORY Bilateral hip replacements Right shoulder reconstruction * ALLERGIES Penicillin * [facility] LABS: Laboratory Tests 12/09/23 10:05 Estimated GFR > 60 Total Bilirubin 0.6 AST 28 ALT 28 Alkaline Phosphatase 74 TODAY'S VISIT THis is his first colonoscpoy. He suffers GERD occasionally and no bowel problems. No anes or sed problems. NO card or resp problems No ID problems. There is no known FHX of colon polyps or cancer. [facility] Medical History Thrombosed external hemorrhoid Tinnitus Mixed dyslipidemia Internal and external bleeding hemorrhoids History of fracture of clavicle History of fracture of left ankle Nocturia Familial hypertriglyceridemia Impaired fasting glucose Osteoarthritis Hyperlipidemia Surgical History History of bilateral hip arthroplasty Family History Father Substance use disorder Pancreatitis Alcoholism Familial hypertriglyceridemia Mother Mental health disorder Breast cancer, Onset Age: 72 Sister Mental health disorder Sister Mental health disorder Paternal Grandfather Familial hypertriglyceridemia Prostate cancer Social History Housing: House Alcohol intake: current Alcohol intake frequency: a few times a week Patient Tobacco Use Status: Never used Tobacco e-Cigarette/Vaping Use: Never Used service: No Current occupational status: retired Cognitive needs: No Hearing needs: No Vision needs: Yes Review of Systems Const Denies fatigue, Denies fever(s), Denies night sweats, Denies poor appetite and Denies weight loss ENT Reports Normal hearing present, Denies dental pain, Denies dysphagia, Denies hearing loss, Denies mouth pain, Denies odynophagia, Denies throat swelling, Denies tongue swelling and Reports other (Dentition adequate) Card Reports no additional complaints Resp Reports no additional complaints GI Details: Denies abdominal pain, Denies melena, Denies bloating, Denies hematochezia, Denies constipation, Denies GI cramping, Denies dysphagia, Denies excessive flatus, Denies early satiety, Reports heartburn, Denies diarrhea, Denies nausea, Denies odynophagia, Denies vomiting and Denies hematemesis Skin/Breast Denies pruritus, Denies lesions, Denies rash and Denies jaundice Neuro Reports Normal hearing present and Denies Abnormal speech present Endo Denies fatigue Aller/Immun Denies throat swelling and Denies tongue swelling Physical Exam Vital Signs: Last Vital Signs Pulse 72 03/01/24 10:16 BP 108/70 03/01/24 10:16 BMI result Body Mass Index 24.2 Const General: cooperative, no acute distress, well developed and well groomed Nutritional Appearance: average body habitus and well nourished Orientation/consciousness: oriented to person, oriented to place and oriented to time Limitations: No language barrier HEENT Head: Yes normocephalic and Yes atraumatic Eyes General: appearance normal, both eyes and all related structures Pupils: Equal, round and reactive pupils present Neck Neck: Yes normal visual inspection and Yes no lymphadenopathy Thyroid: Thyroid normal Resp Effort & Inspection: normal respiratory effort and able to speak in complete sentences Auscultation: clear to auscultation bilaterally Cardio Rate: regular rate Rhythm: regular rhythm Heart sounds: Normal, physiologic split S2 sound present Peripheral pulses: radial pulses present and posterior tibial pulses present GI Inspection: No distended and No Abdominal panniculus present Palpation (GI): Soft to palpation, nontender, no guarding, not rigid and No hepatosplenomegaly present Percussion: Yes normal to percussion Auscultation: normal bowel sounds Rectal Exam - Male: Yes deferred Skin General skin exam: no rashes or lesions noted, turgor normal, skin not dry, no jaundice, No spider nevi and no striae Rashes: no rashes Nails: normal Neuro General: oriented to person, oriented to place and oriented to time Cranial nerves: Yes Equal, round and reactive pupils present and Yes Normal hearing present Speech: No Abnormal speech present Extrem General: Yes normal to inspection, No clubbing, No cyanosis and No edema Psych Appearance: grossly normal and well kempt Mental Status: mental status grossly normal Speech and movement: Normal speech and movement present Affect: normal affect Attitude: cooperative Thought process: Normal thought process present and not confabulating Thought content: Normal thought content present Insight: Fair insight present (Psych) Judgement: Fair judgement present (Psych) Assessment & Plan Assessment & Plan (1) Pre-op examination: Code(s): Z01.818 - Encounter for other preprocedural examination Category: Medical Plan THis is his first colonoscpoy. He suffers GERD occasionally and no bowel problems. No anes or sed problems. NO card or resp problems No ID problems. There is no known FHX of colon polyps or cancer. Orders: Orders Colonoscopy - GI Use Only Today Z01.818 - Encounter for other preprocedural examination Medications: New sodium,potassium,mag sulfates 17.5-3.13-1.6 gram (Suprep Bowel Prep Kit) 480 mL orally; FOR COLONOSCOPY PREP 354 mL 0RF Coding Level of Care Code New Pt Level 3 (51884) Diagnoses Pre-op examination Z01.818
[2024-03-01 10:16] VITALS: BP 108/70; PULSE 72; BMI 24.2
== END 2024-03-01 10:40 | disposition home or self-care (01) ==
PROVIDERS: PCP Internal Medicine; Visit Provider Nurse Practitioner
DX: Z01.818 Encounter for other preprocedural examination (principal)
CPT/HCPCS: 99203

== ENCOUNTER → 2024-03-01 10:11 | Outpatient (BNVA) | payer OTHER, SELFPAY | PROVIDERS: PCP Internal Medicine; Visit Provider Nurse Practitioner | DX: Z01.818 Encounter for other preprocedural examination (principal) | CPT/HCPCS: 99202 ==

== ENCOUNTER 2024-06-03 08:02 | Outpatient (REF) | payer OTHER, SELFPAY ==
[2024-06-03 11:38] LABS: Alanine Aminotransferase 30 U/L (0-40); Aspartate Amino Transferase 39 U/L (5-37); Cholesterol 172 mg/dL (<200); Glucose Fasting 100 mg/dL (60-99); HDL Cholesterol 48 mg/dL (>40); LDL Cholesterol Calculated 68 mg/dL (<100); Triglycerides 281 mg/dL (<150)
== END 2024-06-03 08:03 | disposition home or self-care (01) ==
LOC: HO.HMGCLDS 08:02
PROVIDERS: PCP Internal Medicine; Visit Provider Internal Medicine
DX: E78.1 Pure hyperglyceridemia (principal); R73.01 Impaired fasting glucose
CPT/HCPCS: 36415; 80061; 82947; 84450; 84460

== ENCOUNTER 2024-06-09 13:16 | Outpatient (AMB) | payer OTHER, SELFPAY ==
[2024-06-09 13:36] VITALS: BP 106/60; PULSE 78; O2SAT 96; BMI 24.4
--- NOTE | 2024-06-09 13:36 | A.OFFPC_ITS ---
Vital Signs 06/09/24 13:36 Height 6 ft 3 in Weight 195 lb BMI 24.4 BP 106/60 Blood Pressure Location Rt brachial Position Sitting Pulse 78 Pulse Source Pulse Oximeter Pulse Oximetry (%) 96 Oxygen Delivery Method Room Air Intake Visit Reasons: F/U Labs- Needs Repeat PHQ9 Intake Note: Pt is here today to f/u labs Allergies Penicillins Allergy (Mild, Verified 06/12/24 15:32) hives Medication List - Last Reconciled 06/12/24 by Debbie Zuniga MD atorvastatin 40 mg PO BEDTIME multivitamin 1 tab PO DAILY omega 4-ujq-vbh-fish oil 60-90-500 mg (Fish Oil) 1 cap PO DAILY sodium,potassium,mag sulfates 17.5-3.13-1.6 gram (Suprep Bowel Prep Kit) 480 mL orally; FOR COLONOSCOPY PREP Tobacco use date assessed: 06/09/24 Dental Screening Dental Screen Date: 06/09/24 HPI F/U Labs- Needs Repeat PHQ9 HPI Details 53-year-old male with hyperlipidemia, h ere today for follow-up. He is currently taking atorvastatin 40 mg at night, together with Ingalls 3 fatty acid supplements just 1 capsule once a day. Has been feeling well with no complaints at present time, compliant with medications. Has been noticing having decreased energy especially towards the end of the day. Has history of Lyme disease in the past treated with doxycycline, would like to be rechecked. Complains of intermittent episodes of urinary hesitancy and urgency, with no complaints of dysuria. Has been present now for the last several months. Has positive family history of prostate cancer. COUNT INCLUDES [facility] Medical History (Updated 06/12/24 @ 15:38 by Debbie Zuniga MD) Family history of prostate cancer Thrombosed external hemorrhoid Tinnitus Mixed dyslipidemia Internal and external bleeding hemorrhoids History of fracture of clavicle History of fracture of left ankle Nocturia Familial hypertriglyceridemia Impaired fasting glucose Osteoarthritis Hyperlipidemia Surgical History History of bilateral hip arthroplasty Family History (Updated 06/09/24 @ 14:17 by Debbie Zuniga MD) Father Substance use disorder Pancreatitis Alcoholism Familial hypertriglyceridemia Mother Mental health disorder Breast cancer, Onset Age: 72 Sister Mental health disorder Sister Mental health disorder Paternal Grandfather Familial hypertriglyceridemia Prostate cancer Social History Housing: House Alcohol intake: current Alcohol intake frequency: a few times a week Patient Tobacco Use Status: Never used Tobacco e-Cigarette/Vaping Use: Never Used service: No Current occupational status: retired Cognitive needs: No Hearing needs: No Vision needs: Yes Questionnaire PHQ-9 Over the last 2 weeks, how often have you been bothered by any of the following problems? 1. Little interest or pleasure in doing things: not at all 2. Feeling down, depressed, or hopeless: not at all 3. Trouble falling or staying asleep, or sleeping too much: several days 4. Feeling tired or having little energy: several days 5. Poor appetite or overeating: not at all 6. Feeling bad about yourself - or that you are a failure or have let yourself or your family down: not at all 7. Trouble concentrating on things, such as reading the newspaper or watching television: several days 8. Moving or speaking so slowly that other people could have noticed. Or the opposite - being so fidgety or restless that you have been moving around a lot more than usual: not at all 9. Thoughts that you would be better off or of hurting yourself in some way: not at all Total score: 3 Depression Screening Interpretation: Negative Depression Screening Done: Yes 52284 - PHQ-9 Billing: Yes Source: Developed by Drs. Mustapha Yost, Gloria Barnhart, Jamie Espinal and colleagues, with an educational ruba from [employer]. Thrive Questionnaire Date Thrive assessed: 06/09/24 I am a: Patient What is your living situation today?: I have a steady place to live Within the past 12 months, did the food you bought not last and you didn't have the money to get more?: Never true Within the past 12 months, did you worry whether your food would run out before you got money to buy more?: Never true Do you have trouble paying for medicines?: No Do you have trouble getting transportation to medical appointments?: No Do you have trouble paying your heating and electricity bill?: No Do you have trouble taking care of your child, family member or friend?: No Do you have trouble with day-to-day activities such as bathing, preparing meals, shopping, managing finances, etc.?: No Are you currently unemployed and looking for a job?: No Are you interested in more education?: No Please select the resources that you would like help with: None Currently or been in a relationship where the following occur: No concerns reported THRIVE Score: 0 AUDIT C Alcohol Use Questionnaire (AUDIT-C) 1. How often do you have a drink containing alcohol?: 2-3 times a week 2. How many drinks containing alcohol do you have on a typical day when you are drinking?: 3 or 4 3. How often do you have six or more drinks on one occasion?: Monthly Total Score: 6 GABBY-7 AMB Questionnaire GABBY-7 Date GABBY - 7 assessed: 10/21/23 Feeling nervous, anxious, or on edge: 1 = Several days Not being able to stop or control worryin = Not at all Worrying too much about different things: 1 = Several days Trouble relaxin = Not at all Being so restless that it is hard to sit still: 1 = Several days Becoming easily annoyed or irritable: 1 = Several days Feeling afraid as if something awful might happen: 0 = Not at all Total GABBY-7 score (0-4 normal; 5-9 mild; 10-14 moderate; 15-21 severe): 4 Source: Developed by Drs. Mustapha Yost, Gloria Barnhart, Jamie Espinal and colleagues, with an educational ruba from [employer]. GABBY-7 Assessment Billing GABBY-7 Assessment Tool: GABBY-7 Assessment 71082 Review of Systems Const Reports as per HPI, Denies body aches, Denies headache(s) and Denies weakness Eyes Denies change in vision ENT Denies dizziness, Denies headache(s) and Denies nasal congestion Card Denies chest pain, Denies lightheadedness, Denies palpitations and Denies dyspn ea Resp Denies chest congestion, Denies cough, Denies dyspnea and Denies wheezing GI Denies abdominal pain, Denies change in bowel habits and Denies heartburn Reports as per HPI, Denies hematuria and Denies erectile dysfunction Musc Reports arthralgias, Denies muscle weakness and Reports stiffness Neuro Denies dizziness, Denies headache(s) and Denies weakness Psych Reports no additional complaints Endo Denies polydipsia, Denies polyuria and Denies palpitations Cody/Lymph Reports no additional complaints Aller/Immun Denies seasonal rhinorrhea and Denies wheezing Physical exam (Primary Care) Vital Signs: Last Vital Signs Pulse 78 06/09/24 13:36 BP 106/60 06/09/24 13:36 Pulse Ox 96 06/09/24 13:36 Oxygen Delivery Method Room Air 06/09/24 13:36 BMI result Body Mass Index 24.4 Tobacco/Smoking Status: Tobacco use Status Tobacco use date assessed 06/09/24 06/09/24 13:49 Patient Tobacco Use Status Never used Tobacco 06/09/24 13:39 e-Cigarette/Vaping Use Never Used 06/09/24 13:39 PHQ-9: PHQ-9 Score PHQ-9: Total score 6 06/09/24 14:17 Depression Screening Interpretation: Negative Thrive Assessment: Date of Thrive Assessment Date Thrive assessed 06/09/24 06/09/24 13:49 Currently or been in a relationship where the following occur: No concerns reported Const General: comfortable, no acute distress and alert Orientation/consciousness: patient oriented x3 HENMT Ears: external ears normal, TM's normal bilaterally and EAC's normal General nose exam: Normal external nose present and No nasal discharge present Mouth: Normal oral and palatal mucosa present, oropharynx normal and moist mucous membranes Eyes General: appearance normal, both eyes and all related structures Conjunctivae: conjunctivae normal Sclerae: sclerae normal Pupils: Equal, round and reactive pupils present EOM: EOMs intact bilaterally Neck Neck: Yes full ROM, Yes no lymphadenopathy and Yes supple Resp Effort & Inspection: normal respiratory effort and able to speak in complete sentences Auscultation: clear to auscultation bilaterally Cardio Rate: regular rate Rhythm: regular rhythm Heart sounds: S1 normal heart sound present and S2 normal heart sound present GI Palpation (GI): Soft to palpation, nontender and no masses Auscultation: normal bowel sounds Male General Exam: Yes normal external exam Back/Spine/Pelvis Back: No back tenderness Skin Other: Hyperpigmented macule on cheek and scattered on upper back Neuro General: patient oriented x3, gait normal, tone normal, moves all extremities, Normal light touch and pain sensation and no focal motor deficits Cranial nerves: Yes CN's II-XII intact bilaterally and Yes Equal, round and reactive pupils present Cognition (Neuro): normal cognition Extrem General: Yes full ROM, Yes no joint enlargement, Yes no clubbing, cyanosis or edema and Yes no calf tenderness Psych Appearance: grossly normal and well kempt Mental Status: mental status grossly normal Speech and movement: Normal speech and movement present Affect: normal affect Attitude: cooperative Thought process: Normal thought process present Thought content: Normal thought content present Results Reviewed Results Reviewed: Name: Jeison Romero Age/Sex: 53/M : 1970 Unit#: [id number] Attend Dr: Debbie Zuniga MD Re06/03/24 Status: DEP [facility] Disch: SPEC : [id number] DONNY: 06/03/24 STATUS: COMP REQ : [id number] RECD: 06/03/[address]: Debbie Zuniga MD COMP: 06/03/24 ENTERED: 06/03/[address]: ORDERED: Glu Fasting, AST, ALT, Lipid Panel Test Result Flag Reference FBS 100 H 60-99 mg/dL A fasting glucose from 100-125 mg/dl is considered impaired (pre-diabetes). AST (GOT) 39 H 5-37 U/L ALT (GPT) 30 0-40 U/L Triglyceride 281 H <150 mg/dL Desirable Triglyceride: less than 150 mg/dL Borderline High Triglyceride 150-199 mg/dL High Triglyceride: 200-499 mg/dL Very High Triglyceride: greater than or equal to 5OO mg/dL Cholesterol 172 <200 mg/dL Desirable Cholesterol: less than 200 mg/dL Borderline High Cholesterol: 200-239 mg/dL High Cholesterol: greater than 239 mg/dL LDL Calculated 68 <100 mg/dL Desirable LDL: less than 100 mg/dL Near Optimal/Above Optimal LDL: 110-129 mg/dL Borderline High LDL: 130-159 mg/dL High LDL: 160-189 mg/dL Very High LDL: greater than or equal to 190 mg/dL HDL 48 >40 mg/dL Desirable HDL: greater than 40 mg/dL Note: This HDL assay may give artificially low results in patients with liver disease. Coding Level of Care Code Est Pt Level 4 (75983) Complex EM visit Add On G2211 Diagnoses Fatigue, unspecified type R5.83 Fatigue type: unspecified Urinary hesitancy R39.11 Mixed dyslipidemia E78.2 Additional Codes PHQ-9 - 10183 - PHQ-9 Billing: Yes ([id number]) GABBY-7 Assessment Billing - GABBY-7 Assessment Tool: GABBY-7 Assessment 02340 ([id number]) Assessment & Plan Assessment & Plan (1) Fatigue: Code(s): R53.83 - Other fatigue Category: Medical Qualifiers: Fatigue type: unspecified Qualified Code(s): R53.83 - Other fatigue Plan: Will check free and total testosterone level, Lyme titer, TSH with reflex free T4, CBC with differential and vitamin-D level (2) Urinary hesitancy: Code(s): R39.11 - Hesitancy of micturition Plan: Ordered total and free PSA level, urinalysis with reflex to micro scopic exam and culture. Referred to urology (3) Mixed dyslipidemia: Code(s): E78.2 - Mixed hyperlipidemia Category: Medical Plan: Reviewed recent fasting lipid profile with patient with normal levels except for elevated triglycerides . Continue atorvastatin 40 mg at bedtime and Ingalls 3 fatty acid supplements. , in addition to adherence to low-cholesterol diet and regular exercise, at least 30 minutes 3 to 4 times a week. Advised patient to make healthy food choices, eat more fruits, vegetables, whole grains, wild caught fish and low-fat dairy. Limit amount of meat and fried or fatty food products, as well as processed foods and fast foods. Orders: Orders PSA,Total (Free>4and<10) 06/10/24 R39.11 - Hesitancy of micturition Vitamin D 25-OH Total 06/10/24 R53.83 - Other fatigue Complete Blood Count Auto Diff 06/10/24 R53.83 - Other fatigue UA CC w/rflx Micro + Cult 06/10/24 R39.11 - Hesitancy of micturition, R39.15 - Urgency of urination Vitamin B12 and Folate 06/10/24 R53.83 - Other fatigue TSH reflex Free T4 06/10/24 R53.83 - Other fatigue Lyme IgG/IgM w/reflex to WB 06/10/24 R53.83 - Other fatigue Testosterone, Free/Total 06/10/24 R53.83 - Other fatigue Referrals Urology Referral R39.11 - Hesitancy of micturition, R39.15 - Urgency of urination, Z80.42 - Family history of malignant neoplasm of prostate
== END 2024-06-09 15:12 | disposition home or self-care (01) ==
LOC: HO.HMCC 13:17
PROVIDERS: PCP Internal Medicine; Visit Provider Internal Medicine
DX: R53.83 Other fatigue (principal); R39.11 Hesitancy of micturition; E78.2 Mixed hyperlipidemia

== ENCOUNTER → 2024-06-09 13:16 | Outpatient (BNVA) | payer OTHER, SELFPAY | PROVIDERS: PCP Internal Medicine; Visit Provider Internal Medicine | DX: E78.2 Mixed hyperlipidemia (principal) | CPT/HCPCS: 96127; 99212 ==

== ENCOUNTER 2024-06-10 09:57 | Outpatient (REF) | payer OTHER, SELFPAY ==
[2024-06-10 13:14] LABS: MANUAL DIFF FLAG NO
[2024-06-10 13:16] LABS: Basophils Absolute Auto 0.1 X10*3/uL (0.0-0.2); Eosinophils Absolute Auto 0.2 X10*3/uL (0.0-0.4); Eosinophils Percent Auto 3.3 % (0-4); Hematocrit 45.3 % (42.0-52.0); Hemoglobin 14.9 g/dl (14.0-18.0); Lymphocytes Absolute Auto 2.5 X10*3/uL (1.2-4.9); Lymphocytes Percent Auto 49.2 % (20-40); Mean Corpuscular HGB Conc 32.9 g/dl (31.0-36.0); Mean Corpuscular Hemoglobin 29.2 pg (27.0-33.0); Mean Corpuscular Volume 88.8 fL (80.0-98.0); Monocytes Absolute Auto 0.5 X10*3/uL (0.1-1.2); Monocytes Percent Auto 10.3 % (2-11); Neutrophils Absolute Auto 1.9 x10*3/uL (2.0-8.3); Neutrophils Percent Auto 36.2 % (45-73); Platelet Count 246 X10*3/uL (160-400); Red Cell Distribution Width 13.2 % (11.0-16.0); White Blood Count 5.2 X10*3/uL (4.8-10.8)
[2024-06-10 13:38] LABS: Appearance Urine Clear; Color Urine Yellow; Glucose Urine UA Negative (Negative); Leukocyte Esterase Urine Negative (Negative); Nitrite Urine Negative (Negative); Urine Blood Negative (Negative); Urine Ketones Negative (Negative); Urine Protein Negative (Neg-Trace)
[2024-06-10 13:56] LABS: PSA,Total (Free>4and<10) 0.79 ng/mL (0.00-4.00)
[2024-06-10 13:59] LABS: TSH reflex Free T4 1.36 uIU/mL (0.32-4.0); Vitamin D 25-OH Total 70.8 ng/mL (>30)
[2024-06-10 14:10] LABS: Folate 14.3 ng/mL (> or = 4.0); Vitamin B12 447 pg/mL (200-900)
[2024-06-13 22:08] LABS: Lyme Blot 7.79 index
[2024-06-14 12:42] LABS: Lyme Abs Screen POSITIVE
[2024-06-14 14:24] LABS: 18 KD (IgG) Band REACTIVE; 23 KD (IgG) Band NON-REACTIVE; 23 KD (IgM) Band REACTIVE; 28 KD (IgG) Band NON-REACTIVE; 30 KD (IgG) Band NON-REACTIVE; 39 KD (IgM) Band NON-REACTIVE; 39KD (IgG) Band REACTIVE; 41 KD (IgM) Band NON-REACTIVE; 41KD (IgG) Band REACTIVE; 45 KD (IgG) Band NON-REACTIVE; 58 KD (IgG) Band REACTIVE; 66 KD (IgG) Band NON-REACTIVE; 93 KD (IgG) Band NON-REACTIVE; Lyme IgG Blot Interp NEGATIVE (NEGATIVE); Lyme IgM Blot Interp NEGATIVE (NEGATIVE)
[2024-06-16 21:23] LABS: Testosterone, Free 76.2 pg/mL (35.0-155.0); Testosterone, Total 293 ng/dL (250-1100)
== END 2024-06-10 09:58 | disposition home or self-care (01) ==
LOC: HO.HMGCLDS 09:57
PROVIDERS: PCP Internal Medicine; Visit Provider Internal Medicine
DX: R53.83 Other fatigue (principal); R39.11 Hesitancy of micturition; R39.15 Urgency of urination
CPT/HCPCS: 36415; 81003; 82306; 82607; 82746; 84153; 84402; 84403; 84443; 85025; 86617; 86618

== ENCOUNTER 2024-06-24 08:12 | Outpatient (AMB) | payer OTHER, SELFPAY ==
--- NOTE | 2024-06-24 08:11 | A.OFFPC_ITS ---
Intake Visit Reasons: Discuss lab results/fatigue iPhone Intake Note: Pt is having a TH visit to discuss recent lab results Allergies Penicillins Allergy (Mild, Verified 06/24/24 08:54) hives Medication List - Last Reconciled 06/24/24 by Debbie Zuniga MD atorvastatin 40 mg PO BEDTIME multivitamin 1 tab PO DAILY omega 1-fhg-uuk-fish oil 60-90-500 mg (Fish Oil) 1 cap PO DAILY sodium,potassium,mag sulfates 17.5-3.13-1.6 gram (Suprep Bowel Prep Kit) 480 mL orally; FOR COLONOSCOPY PREP Tobacco use date assessed: 06/24/24 Dental Screening Dental Screen Date: 06/24/24 Did you have a dental visit in the last 12 months?: Yes Did you have a dental problem in the last 6 months where you did not have access to dental care?: Yes Was dental information given to patient?: Patient has dentist HPI Discuss lab results/fatigue iPhone HPI Details The patient is a 53-year-old male presenting with chronic fatigue. In December, the patient was diagnosed with Lyme disease and completed a 10-day course of doxycycline, but reported no noticeable improvement in symptoms after the treatment. The fatigue persisted throughout the summer, impairing the patient's usual high level of outdoor activity. The patient denies shortness of breath but experiences fatigue not relieved by rest. Recent labs indicated slightly elevated lymphocytes. Thyroid function, testosterone level, and complete blood count were unremarkable ,other than elevated lymphocytes. The patient denies having a history of autoimmune disorders, but reports generalized arthralgia without specific localized joint pain or fever. The patient has not used anti-inflammatory medications for joint pain. [facility] Medical History Post-Lyme disease syndrome Family history of prostate cancer Thrombosed external hemorrhoid Tinnitus Mixed dyslipidemia Internal and external bleeding hemorrhoids History of fracture of clavicle History of fracture of left ankle Nocturia Familial hypertriglyceridemia Impaired fasting glucose Osteoarthritis Hyperlipidemia Surgical History History of bilateral hip arthroplasty Family History Father Substance use disorder Pancreatitis Alcoholism Familial hypertriglyceridemia Mother Mental health disorder Breast cancer, Onset Age: 72 Sister Mental health disorder Sister Mental health disorder Paternal Grandfather Familial hypertriglyceridemia Prostate cancer Social History Housing: House Alcohol intake: current Alcohol intake frequency: a few times a week Patient Tobacco Use Status: Never used Tobacco e-Cigarette/Vaping Use: Never Used service: No Current occupational status: retired Cognitive needs: No Hearing needs: No Vision needs: Yes Questionnaire Thrive Questionnaire Date Thrive assessed: 06/09/24 GABBY-7 AMB Questionnaire GABBY-7 Date GABBY - 7 assessed: 10/21/23 Source: Developed by Drs. Mustapha Yost, Gloria Barnhart, Jamie Espinal and colleagues, with an educational ruba from [employer]. Review of Systems Const Reports as per HPI and Denies weakness Eyes Denies change in vision ENT Denies dizziness and Denies nasal congestion Card Denies chest pain, Denies lightheadedness, Denies palpitations and Denies dyspnea Resp Denies chest congestion, Denies cough, Denies dyspnea and Denies wheezing GI Denies abdominal pain, Denies change in bowel habits and Denies heartburn Reports as per HPI, Denies hematuria and Denies erectile dysfunction Musc Reports arthralgias, Denies muscle weakness and Reports stiffness Neuro Denies dizziness and Denies weakness Psych Reports no additional complaints Endo Denies polydipsia, Denies polyuria and Denies palpitations Cody/Lymph Reports no additional complaints Aller/Immun Denies seasonal rhinorrhea and Denies wheezing Physical exam (Primary Care) Tobacco/Smoking Status: Tobacco use Status Tobacco use date assessed 06/24/24 06/24/24 08:11 Patient Tobacco Use Status Never used Tobacco 06/24/24 08:11 e-Cigarette/Vaping Use Never Used 06/24/24 08:11 Thrive Assessment: Date of Thrive Assessment Date Thrive assessed 06/09/24 06/24/24 08:11 Telehealth Telehealth Telehealth Platform: [facility] Location of provider rendering services: practice address Location of patient: address on file Patient Identification confirmed using: Name, : Yes Telehealth method: video Patient verbally consented to treatment: Yes Patient verbally consented to billing insurance company: Yes Patient informed of any privacy concerns related to visit: Yes Minutes spent on Phone/Video with Pt.: 15 Results Reviewed Results Reviewed: rita: Jeison Romero Age/Sex: 53/M : 1970 Unit#: [id number] Attend Dr: Debbie Zuniga MD Re06/10/24 Status: DEP REF Location: [facility] Disch: SPEC : [id number] DONNY: 06/10/24 STATUS: COMP REQ : [id number] RECD: 06/10/24-[address]: Debbie Zuniga MD COMP: 06/14/24 ENTERED: 06/10/[address]: ORDERED: Lyme Abs rflxWB, Lyme Disease WB Test Result Flag Reference Lyme Abs Scrn POSITIVE Lyme Scrn/Blot 7.79 H index Index Interpretation ----- < 0.90 Negative 0.90-1.09 Equivocal > 1.09 Positive As recommended by the Food and Drug Administration (FDA), all samples with positive or equivocal results in a Borrelia burgdorferi antibody screen will be tested using a blot method. Positive or equivocal screening test results should not be interpreted as truly positive until verified as such using a supplemental assay (e.g., B. burgdorferi blot). The screening test and/or blot for B. burgdorferi antibodies may be falsely negative in early stages of Lyme disease, including the period when erythema migrans is apparent. THIS TEST WAS PERFORMED AT: [facility] [employer] [address] [place] [id number] ELIZABETH WALLACE MD Lyme IgG Bl Int NEGATIVE NEGATIVE 18KD (IgG) Band REACTIVE A 23KD (IgG) Band NON-REACTIVE 28KD (IgG) Band NON-REACTIVE 30KD (IgG) Band NON-REACTIVE 39 KD(IgG) Band REACTIVE A 41 KD(IgG) Band REACTIVE A 45KD (IgG) Band NON-REACTIVE 58KD (IgG) Band REACTIVE A 66KD (IgG) Band NON-REACTIVE 93KD (IgG) Band NON-REACTIVE Lyme IgM Bl Int NEGATIVE NEGATIVE 23KD (IgM) Band REACTIVE A 39KD (IgM) Band NON-REACTIVE 41KD (IgM) Band NON-REACTIVE Name: Jeison Romero Age/Sex: 53/M : 1970 Unit#: [id number] Attend Dr: Debbie Zuniga MD Re06/10/24 Status: [facility] Disch: SPEC : [id number] DONNY: 06/10/24 STATUS: COMP REQ : [id number] RECD: 06/10/24-[address]: Debbie Zuniga MD COMP: 06/10/24 ENTERED: 06/10/[address] [facility] [address]: ORDERED: CBC Auto Diff Test Result Flag Reference WBC 5.2 4.8-10.8 X10*3/uL RBC 5.10 4.60-5.80 X10*6/uL HGB 14.9 14.0-18.0 g/dl HCT 45.3 42.0-52.0 % MCV 88.8 80.0-98.0 fL MCH 29.2 27.0-33.0 pg MCHC 32.9 31.0-36.0 g/dl RDW 13.2 11.0-16.0 % PLT 246 160-400 X10*3/uL MPV 10.0 9.4-12.4 fL Neut Pct Auto 36.2 L 45-73 % ImGran Pct Auto 0.0 0.0-0.4 % Lymp Pct Auto 49.2 H 20-40 % [place]in[place] Pct Auto 10.3 2-11 % Eos Pct Auto 3.3 0-4 % Baso Pct Auto 1.0 0-2 % NRBC Pct Auto 0.0 0.0-0.2 /100WBC ANC Neut Abs # 1.9 L 2.0-8.3 x10*3/uL ImGran Abs Auto 0.00 0.00-0.03 X1 0*3/uL Lymph Abs Auto 2.5 1.2-4.9 X10*3/uL [place]in[place] Abs Auto 0.5 0.1-1.2 X10*3/uL Eos Abs Auto 0.2 0.0-0.4 X10*3/uL Baso Abs Auto 0.1 0.0-0.2 X10*3/uL NRBC Abs Auto 0.000 0.0-0.012 X10*3/uL Laboratory Tests 06/03/24 06/10/24 08:33 10:45 Fasting Glucose 100 H AST 39 H ALT 30 Triglycerides 281 H Cholesterol 172 LDL Cholesterol, Calc 68 HDL Cholesterol 48 Total PSA 0.79 Vitamin B12 447 25-OH Vitamin D Total 70.8 Folate 14.3 TSH 1.36 Total Testosterone 293 Fr Testosterone Dialys 76.2 Coding Level of Care Code Tele Est Pt Level 3 (92840) Diagnoses Post-Lyme disease syndrome B94.8 Chronic fatigue and malaise R53.82; R53.81 Assessment & Plan Assessment & Plan (1) Post-Lyme disease syndrome: Code(s): B94.8 - Sequelae of other specified infectious and parasitic diseases Category: Medical (2) Chronic fatigue and malaise: Code(s): R53.82 - Chronic fatigue, unspecified; R53.81 - Other malaise Category: Medical Plan - Chronic Fatigue: The patient will be referred to an infectious disease specialist for further evaluation and possible additional testing to assess lingering Lyme disease activity. The management will focus on ruling out other tick-borne illnesses such as - Generalized Arthralgia: Recommend trial of anti-inflammatory medications like Ibuprofen or Naproxen as needed to alleviate joint pain, though not advised for daily use. Monitor the response to these medications. Patient was informed and verbally consented to the use of an ambient scribe for clinic note documentation during this visit. Orders: Referrals Infectious Disease Referral B94.8 - Sequelae of other specified infectious and parasitic diseases, R53.81 - Other malaise, R53.82 - Chronic fatigue, unspecified
== END 2024-06-24 09:39 | disposition home or self-care (01) ==
LOC: HO.HMCC 08:13
PROVIDERS: PCP Internal Medicine; Visit Provider Internal Medicine
DX: B94.8 Sequelae of other specified infectious and parasitic diseases (principal); R53.82 Chronic fatigue, unspecified; R53.81 Other malaise

== ENCOUNTER 2024-06-29 09:20 | Day surgery (SDC) | payer OTHER, SELFPAY ==
[2024-06-27 13:46] VITALS: BMI 24.2
--- NOTE | 2024-06-28 12:12 | HO.ANESPROP2 ---
Documented by User: Shira Tavares NP 06/28/24 12:12 HPI - Anesthesia Eval Consult details Narrative: 54yo M for Colonoscopy PMFSH Active Problems Active Problems: All Active Problems Chronic fatigue and malaise (Acute) Post-Lyme disease syndrome (Acute) Fatigue (Acute) Family history of prostate cancer (Acute) Tinnitus (Acute) Mixed dyslipidemia (Acute) Nocturia (Acute) Familial hypertriglyceridemia (Acute) Impaired fasting glucose (Acute) Osteoarthritis (Acute) History of bilateral hip arthroplasty (Acute) Past Medical History Medical History Post-Lyme disease syndrome Family history of prostate cancer Thrombosed external hemorrhoid Tinnitus Mixed dyslipidemia Internal and external bleeding hemorrhoids History of fracture of clavicle History of fracture of left ankle Nocturia Familial hypertriglyceridemia Impaired fasting glucose Osteoarthritis Hyperlipidemia Family History Family History Father Substance use disorder Pancreatitis Alcoholism Familial hypertriglyceridemia Mother Mental health disorder Breast cancer, Onset Age: 72 Sister Mental health disorder Sister Mental health disorder Paternal Grandfather Familial hypertriglyceridemia Prostate cancer Surgical History Surgical History H/O wisdom tooth extraction History of shoulder surgery History of bilateral hip arthroplasty Social History Social History Housing: House Alcohol intake: current Alcohol intake frequency: a few times a week Patient Tobacco Use Status: Never used Tobacco e-Cigarette/Vaping Use: Never Used Use of substances other than those prescribed or required for medical reasons: Yes Are you DNR?: No Advance Directives: No Advance Directives Information Provided: Yes Recently lost weight without trying: No Nutrition Risks: No Nutritional Risk Poor oral hygiene: No service: No Current occupational status: retired Cognitive needs: No Hearing needs: No Vision needs: Yes Meds Allergies Allergy/AdvReac Type Severity Reaction Status Date / Time Penicillins Allergy Mild hives Verified 06/24/24 08:54 Home Medications ?Medication ?Instructions ?Recorded ?Confirmed ?Last Taken ?Type omega 3-knt-xmi-fish oil 60 mg-90 1 cap PO DAILY 10/21/23 06/27/24 06/27/24 History mg-500 mg capsule (Fish Oil) multivitamin 1 tab PO DAILY 03/01/24 06/27/24 Unknown History Exam Height,Weight and Vital Signs: Height 6 ft 3 in Weight 87.997 kg Assessment and Plan Assessment Anesthesia Assessment: Chart Reviewed Documented by User: Cassie Ch MD 06/29/24 11:13 PMFSH Past Medical History Medical History Post-Lyme disease syndrome Family history of prostate cancer Thrombosed external hemorrhoid Tinnitus Mixed dyslipidemia Internal and external bleeding hemorrhoids History of fracture of clavicle History of fracture of left ankle Nocturia Familial hypertriglyceridemia Impaired fasting glucose Osteoarthritis Hyperlipidemia Family History Family History Father Substance use disorder Pancreatitis Alcoholism Familial hypertriglyceridemia Mother Mental health disorder Breast cancer, Onset Age: 72 Sister Mental health disorder Sister Mental health disorder Paternal Grandfather Familial hypertriglyceridemia Prostate cancer Family history of problems with anesthesia: No Surgical History Surgical History H/O wisdom tooth extraction History of shoulder surgery History of bilateral hip arthroplasty History of Problems with Anesthesia: No Social History Social History Housing: House Alcohol intake: current Alcohol intake frequency: a few times a week Patient Tobacco Use Status: Never used Tobacco e-Cigarette/Vaping Use: Never Used Use of substances other than those prescribed or required for medical reasons: Yes Are you DNR?: No Advance Directives: No Advance Directives Information Provided: Yes Recently lost weight without trying: No Nutrition Risks: No Nutritional Risk Poor oral hygiene: No service: No Current occupational status: retired Cognitive needs: No Hearing needs: No Vision needs: Yes Meds Allergies Allergy/AdvReac Type Severity Reaction Status Date / Time Penicillins Allergy Mild hives Verified 06/24/24 08:54 Home Medications ?Medication ?Instructions ?Recorded ?Confirmed ?Last Taken ?Type omega 1-rij-eev-fish oil 60 mg-90 1 cap PO DAILY 10/21/23 06/27/24 06/27/24 History mg-500 mg capsule (Fish Oil) multivitamin 1 tab PO DAILY 03/01/24 06/27/24 Unknown History Exam Airway Mallampati Class: II TM Dist: >3cm Neck ROM: Full Heart: rrr Lungs: cta Assessment and Plan Assessment Anesthesia Assessment: Anesthesia Plan Discussed Final Anesthetic Review Family History of Problems with Anesthesia: No History of Problems with Anesthesia: No NPO: Yes ASA Class: III Final Preanesthetic Review: No Changes in Pt Med Stat, Meds/Allgs Chart Reviewed, Consent Obtained/Reviewed and Anes Risks/Benef Reviewed Patient Risk: Low Procedure Risk: Low Anesthetic Plan Anesthetic Plan: MAC: Disposition: Standard PACU
[2024-06-29 09:49] VITALS: BMI 24.4
[2024-06-29 10:05] VITALS: BP 119/82; PULSE 68; RESP 16; TEMP 36.7; O2SAT 96
[2024-06-29] MEDS: Lactated Ringers 1,000 ML 100 ML IVCONT (10:13)
--- NOTE | 2024-06-29 10:28 | P.HPSUR_ITS ---
Pre-Procedural Eval Section A - 24 Hr Update-Section A only Date of Service: 06/29/24 Section B - Complete if H&P > 30 days Chief Complaint: Encounter for screening for malignant neoplasm of Relevant Family History (Specify if Yes): No Relevant Social History: None Present Medications: see Short Stay Collaborative assessment Medical History: Significant History (High cholesterol Tinnitus History of thr ombosed external hemorrhoid History of clavicle and ankle fracture Generalized osteoarthritis *) History of Previous Operations: Relevant previous surgery/procedure and date(s) (Bilateral hip replacements Right shoulder reconstruction) Allergies: Allergies Allergy/AdvReac Type Severity Reaction Status Date / Time Penicillins Allergy Mild hives Verified 06/24/24 08:54 Review of Systems Sugical H&P ROS: Negative: Constitution, Cardiovascular, Respiratory, Neurological, Psychiatric, Hem-Onc, Allergic/Immunologic, Gastrointestinal, Genitourinary, Musculoskeletal, Integumentary, Endocrine and Eyes/Ears/Nose/Throat Exam Surgical H&P Exam: Normal: HEENT, Normal: Heart, Normal: Lungs, Normal: Extremities, Normal: Abdomen, Normal: Skin and Normal: Neurological Plan Diagnosis/Plan: Unchanged I have reviewed the history and physical and performed a pertinent physical examination on my patient. No changes have occurred unless specified. Time Spent With Patient Time: Total time managing care of this patient today ____ minutes.
--- NOTE | 2024-06-29 11:09 | P.OPN-COLO_ITS ---
Colonoscopy Operative Note Operative Note Date of Service: 06/29/24 Narrative: Operative Information Procedure Description: Colonoscopy Indication: screening Anesthesia: MAC COLONOSCOPY Instrument: Olympus variable stiffness pediatric scope 190L Colonoscopy Monitoring: Vital signs and clinical assessment, continuous EKG monitoring, Pulse oximetry, Carbon Dioxide monitoring and blood pressure monitoring were done throughout the procedure. Colon withdrawal time was 10 minutes. Procedure: The patient was placed in the left lateral decubitis position and pre-procedure medications were administered. After a digital rectal examination of the ano-rectum, the video colonoscope was inserted into the rectum and advanced through the colon to the cecum/TI. The colonoscope was slowly withdrawn in a retrograde panoramic fashion and the colon mucosa was carefully examined including a retroflexed view of the rectum. Findings and interventions are described below. Procedure Difficulty: easy Findings: Terminal Ileum-normal Cecum:normal Right sided retroflexion- normal Ascending Colon: normal Transverse Colon -normal Descending Colon: x 2 sessile polyps 5-7 mm removed with cold forceps Sigmoid Colon: 10-12 mm pedunculated polyp removed with cold snare Rectum: Retroflexion with small internal hemorrhoids seen, grade I with skin tag noted Anorectum - normal Intervention: cold forceps and cold snare Colon preparation: [place] Bowel Preparation Scale Right colon; 2 Transverse colon: 2 Left colon; 2 (0 = Unprepared colon segment with mucosa not seen due to solid stool that cannot be cleared. 1 = Portion of mucosa of the colon segment seen, but other areas of the colon segment not well seen due to staining, residual stool and/or opaque liquid. 2 = Minor amount of residual staining, small fragments of stool and/or opaque liquid, but mucosa of colon segment seen well. 3 = Entire mucosa of colon segment seen well with no residual staining, small fragments of stool or opaque liquid) Impression and Post Procedure Diagnosis: colon polyps internal hemorrhoids Plan: High fiber diet leaflet Avoid straining at stool, epsom salts and sitz bath, anusol supps or cream Repeat Colonoscopy in 5 years due to polyps or earlier if clinically indicated Above findings were reviewed with the patient and relevant handouts were provided if indicated.
[2024-06-29 11:13] VITALS: BP 104/74; PULSE 75; RESP 16; TEMP 36.2; O2SAT 97
[2024-06-29 11:25] VITALS: BP 115/76; PULSE 71; RESP 16; TEMP 36.2; O2SAT 96
== END 2024-06-29 11:58 | disposition home or self-care (01) ==
PROVIDERS: Visit Provider Internal Medicine Gastroenterology
PROC: 0DJD8ZZ Inspection of Lower Intestinal Tract, Via Natural or Artificial Opening Endoscopic (ICD-10-PCS; CPT 45378; principal; 2024-06-29 11:40)
DX: Z12.11 Encounter for screening for malignant neoplasm of colon (principal); D12.4 Benign neoplasm of descending colon; D12.7 Benign neoplasm of rectosigmoid junction; K64.0 First degree hemorrhoids; K64.4 Residual hemorrhoidal skin tags; E78.5 Hyperlipidemia, unspecified; Z79.02 Long term (current) use of antithrombotics/antiplatelets; Z79.899 Other long term (current) drug therapy
CPT/HCPCS: 45385; 45380; 88305; J2003; J2704

== ENCOUNTER → 2024-06-29 09:20 | Outpatient (BNV) | payer OTHER, SELFPAY | PROVIDERS: Visit Provider Internal Medicine Gastroenterology | DX: Z12.11 Encounter for screening for malignant neoplasm of colon (principal); D12.4 Benign neoplasm of descending colon; D12.5 Benign neoplasm of sigmoid colon; K64.0 First degree hemorrhoids; K64.4 Residual hemorrhoidal skin tags | CPT/HCPCS: 45380; 45385 ==

== ENCOUNTER 2024-07-04 14:56 | Outpatient (AMB) | payer OTHER, SELFPAY ==
--- NOTE | 2024-07-04 14:58 | MHC.OFFVIS ---
Vital Signs 07/04/24 15:05 Height 6 ft 2 in Weight 198 lb BMI 25.4 Pulse 77 Pulse Source Pulse Oximeter Pulse Oximetry (%) 97 Oxygen Delivery Method Room Air Intake Visit Reasons: HMCreff dx lyme disease 12/2023 tx doxy no improv Allergies Penicillins Allergy (Mild, Verified 07/04/24 15:05) hives HPI HPI HMCreff dx lyme disease 12/2023 tx doxy no improv: Details: He has fatigue. He has Lyme screening antibody June 20 positive and Western blot IgM and IgG negative. He has had prior tick exposure. [facility] Medical History Post-Lyme disease syndrome Family history of prostate cancer Thrombosed external hemorrhoid Tinnitus Mixed dyslipidemia Internal and external bleeding hemorrhoids History of fracture of clavicle History of fracture of left ankle Nocturia Familial hypertriglyceridemia Impaired fasting glucose Osteoarthritis Hyperlipidemia Surgical History H/O wisdom tooth extraction History of shoulder surgery History of bilateral hip arthroplasty Family History Father Substance use disorder Pancreatitis Alcoholism Familial hypertriglyceridemia Mother Mental health disorder Breast cancer, Onset Age: 72 Sister Mental health disorder Sister Mental health disorder Paternal Grandfather Familial hypertriglyceridemia Prostate cancer Social History Housing: House Alcohol intake: current Alcohol intake frequency: a few times a week Patient Tobacco Use Status: Never used Tobacco e-Cigarette/Vaping Use: Never Used service: No Current occupational status: retired Cognitive needs: No Hearing needs: No Vision needs: Yes Review of Systems Const All systems reviewed & are unremarkable except as noted in HPI and below Physical Exam Vital Signs: Last Vital Signs Pulse 77 07/04/24 15:05 Pulse Ox 97 07/04/24 15:05 Oxygen Delivery Method Room Air 07/04/24 15:05 BMI result Body Mass Index 25.4 Const General: cooperative Orientation/consciousness: patient oriented x3 HEENT Head: Yes normal to inspection Mouth: Normal oral and palatal mucosa present Eyes General: appearance normal, both eyes and all related structures Pupils: Equal, round and reactive pupils present Resp Effort & Inspection: normal respiratory effort Cardio Rate: regular rate Rhythm: regular rhythm GI Palpation (GI): Soft to palpation and nontender General: Yes no CVA tenderness Back/Spine/Pelvis Back: no CVA tenderness Skin General skin exam: no rashes or lesions noted Neuro General: patient oriented x3 Cranial nerves: Yes CN's II-XII intact bilaterally and Yes Equal, round and reactive pupils present Extrem General: Yes normal to inspection Psych Appearance: grossly normal Assessment & Plan Assessment & Plan (1) Chronic fatigue and malaise: Code(s): R53.82 - Chronic fatigue, unspecified; R53.81 - Other malaise Category: Medical Plan: No treatment at this time,no active Lyme disease seen. (2) Fatigue: Code(s): R53.83 - Other fatigue Category: Medical Plan: n/a Coding Level of Care Code New Pt Level 3 (01156) Diagnoses Chronic fatigue and malaise R53.82; R53.81 Fatigue R53.83
[2024-07-04 15:05] VITALS: PULSE 77; O2SAT 97; BMI 25.4
== END 2024-07-04 15:54 | disposition home or self-care (01) ==
PROVIDERS: PCP Internal Medicine; Visit Provider Internal Medicine
DX: R53.82 Chronic fatigue, unspecified (principal); R53.81 Other malaise; R53.83 Other fatigue
CPT/HCPCS: 99203

== ENCOUNTER → 2024-07-04 14:56 | Outpatient (BNVA) | payer OTHER, SELFPAY | PROVIDERS: PCP Internal Medicine; Visit Provider Internal Medicine | DX: R53.82 Chronic fatigue, unspecified (principal); R53.81 Other malaise; Z86.61 Personal history of infections of the central nervous system | CPT/HCPCS: 99202 ==

== ENCOUNTER 2024-08-09 15:00 | Outpatient (AMB) | payer OTHER, SELFPAY ==
--- NOTE | 2024-08-09 15:21 | A.OFFVIS_ITS ---
Intake Visit Reasons: urinary hesitancy and urgency Intake Note: New Patient is present for Urinary Urgency/Hesitancy Urology Med: None Antibiotic Allergy: Penicillins Blood Thinner: None Family History of Prostate Cancer- Grandfather PVR:39mls Tail Ripper Required: No Accompanied by: Self / Same As Patient Allergies Penicillins Allergy (Mild, Verified 08/09/24 21:50) hives Medication List - Last Reconciled 08/09/24 by JOSE C LeP- alfuzosin ER 10 mg PO BEDTIME 30 days atorvastatin 40 mg PO BEDTIME hydrocortisone 2.5% appl topical multivitamin 1 tab PO DAILY omega 2-wpp-inv-fish oil 60-90-500 mg (Fish Oil) 1 cap PO DAILY HPI Comments Details: Jeison is a very pleasant 54-year-old male patient of Dr. Zuniga. He has a past medical history of post Lyme disease syndrome, family history of prostate cancer, tinnitus, mixed dyslipidemia, internal and external hemorrhoids, nocturia, hypertriglyceridemia, osteoarthritis, and hyperlipidemia. He presents to the office today as a new patient for ongoing lower urinary tract symptoms. In discussion with the patient today he reports noting for many years he continues to experience lower urinary tract symptoms however feels they have become more bothersome. He reports noting episodes of urinary urgency, urinary frequency, and at times feels urinary hesitancy. In office urinalysis results reviewed with the patient today. PVR 34 mL. He does report a family history of prostate cancer. He reports maternal grandfather had prostate cancer. In review of patient's chart it appears PSA 06/26 0.8. He reports having had testosterone labs drawn with PCP as he continues to experience ongoing issues with fatigue testosterone 06/26 293. We discussed at length potential causes of lower urinary tract symptoms patient was experiencing. We discussed potential for near future in office cystoscopy and or urodynamics for further assessment evaluation. We discussed obtaining retroperitoneal ultrasound for further assessment evaluation. He otherwise denies hematuria, dysuria, foul smelling urine, flank pain, fever, and or chills. [facility] Medical History Post-Lyme disease syndrome Family history of prostate cancer Thrombosed external hemorrhoid Tinnitus Mixed dyslipidemia Internal and external bleeding hemorrhoids History of fracture of clavicle History of fracture of left ankle Nocturia Familial hypertriglyceridemia Impaired fasting glucose Osteoarthritis Hyperlipidemia Surgical History H/O wisdom tooth extraction History of shoulder surgery History of bilateral hip arthroplasty Family History Father Substance use disorder Pancreatitis Alcoholism Familial hypertriglyceridemia Mother Mental health disorder Breast cancer, Onset Age: 72 Sister Mental health disorder Sister Mental health disorder Paternal Grandfather Familial hypertriglyceridemia Prostate cancer Social History Housing: House Alcohol intake: current Alcohol intake frequency: a few times a week Patient Tobacco Use Status: Never used Tobacco e-Cigarette/Vaping Use: Never Used service: No Current occupational status: retired Cognitive needs: No Hearing needs: No Vision needs: Yes Review of Systems Const All systems reviewed & are unremarkable except as noted in HPI and below Physical Exam Const General: cooperative, healthy appearing, comfortable, no acute distress, well developed, alert and awake Orientation/consciousness: patient oriented x3 Limitations: no limitations HEENT Head: Yes normal to inspection, Yes normocephalic and Yes atraumatic Ears: hearing grossly normal bilaterally Eyes General: appearance normal, both eyes and all related structures Neck Neck: Yes normal visual inspection and Yes trachea midline Chest Chest palpation & inspection: normal inspection of the chest Resp Effort & Inspection: normal respiratory effort and able to speak in complete sentences Cardio Rate: regular rate GI Inspection: Yes normal to inspection General: Yes no CVA tenderness Back/Spine/Pelvis Back: no CVA tenderness Skin General skin exam: no rashes or lesions noted Neuro General: patient oriented x3 Extrem General: Yes normal to inspection Psych Appearance: grossly normal and well kempt Mental Status: mental status grossly normal Speech and movement: Normal speech and movement present and Clear speech present Affect: normal affect Attitude: cooperative Thought process: Normal thought process present Thought content: Normal thought content present Insight: Fair insight present (Psych) Judgement: Fair judgement present (Psych) Office Procedures Post Void Residual Post Residual Void Post Void Residual (PVR): 39 [id number] Void Residual by ultrasound Assessment & Plan Assessment & Plan (1) Fatigue: Code(s): R53.83 - Other fatigue Category: Medical (2) Lower urinary tract symptoms: Code(s): R39.9 - Unspecified symptoms and signs involving the genitourinary system Category: Medical (3) Urinary urgency: Code(s): R39.15 - Urgency of urination Category: Medical (4) Urinary frequency: Code(s): R35.0 - Frequency of micturition Category: Medical (5) History of urinary hesitancy: Code(s): Z87.898 - Personal history of other specified conditions Category: Medical (6) Family history of prostate cancer: Code(s): Z80.42 - Family history of malignant neoplasm of prostate Category: Medical Plan In office urinalysis results reviewed with the patient today; as noted above PVR 39 mL. We discussed at length potential causes of lower urinary tract symptoms patient is experiencing. We discussed borderline low testosterone. Will obtain LH, FSH, SHBG, estradiol, prolactin, and testosterone free and total for further assessment evaluation. We discussed obtaining retroperitoneal ultrasound for further assessment evaluation. We discussed bladder triggers/irritants. Discussed potential near future in office cystoscopy and or urodynamics for further assessment evaluation. Start alfuzosin as discussed and prescribed. Follow-up in 1-3 months with imaging and PVR; or sooner with any issues, concerns, and or questions. Orders: Orders Sex Hormone Binding Globulin Today R53.83 - Other fatigue Testosterone, Free/Total Today R53.83 - Other fatigue Follicle Stimulating Hormone Today E29.1 - Testicular hypofunction, R53.83 - Other fatigue US retroperitoneal comp Today R39.9 - Unspecified symptoms and signs involving the genitourinary system AMB Post Void Residual by ultrasound Today R35.1 - Nocturia Prolactin Today R53.83 - Other fatigue Lutenizing Hormone Today R53.83 - Other fatigue Estradiol Ultra Sensitive Today E29.1 - Testicular hypofunction, R53.83 - Other fatigue Medications: New alfuzosin ER Take before bedtime 10 mg PO BEDTIME 30 tabs 3RF 30 days N32.0 - Bladder- neck obstruction, N40.1 - Benign prostatic hyperplasia with lower urinary tract symptoms, R33.9 - Retention of urine, unspecified, R35.1 - Nocturia, R39.12 - Poor urinary stream Patient Instructions: The patient had an opportunity to ask questions regarding the treatment plan. All questions were answered. Physical exam, labs, and imaging were discussed and reviewed in detail. As well as risks, benefits, and discussion of treatment choices. No major barriers to understanding were identified. The patient expressed understanding and agreement with the above treatment plan. The patient was made aware they should contact our office by phone for worsening of their current condition, the appearance of new symptoms, or with any questions or concerns. Compliance is encouraged with any medications and follow up testing that is ordered. It is a privilege to be allowed the opportunity to participate in? your urological care.? Again, if you have any questions or concerns If you have any questions or concerns please do not hesitate to contact me. The office is [phone]. This note is constructed using voice recognition software. While every effort has been made to ensure accuracy felt strip finisher errors may have been included. Yours sincerely, SAÚL Le Coding Level of Care Code New Pt Level 4 (33119) Diagnoses Fatigue R53.83 Lower urinary tract symptoms R39.9 Urinary urgency R39.15 Urinary frequency R35.0 History of urinary hesitancy Z87.898 Family history of prostate cancer Z80.42 CPT Codes Post Residual Void - PVR CPT Code: 14655-[place]jax Void Residual by ultrasound ([id number])
== END 2024-08-09 16:02 | disposition home or self-care (01) ==
PROVIDERS: PCP Internal Medicine; Visit Provider Nurse Practitioner Family
DX: R53.83 Other fatigue (principal); R39.9 Unspecified symptoms and signs involving the genitourinary system; R39.15 Urgency of urination; R35.0 Frequency of micturition; Z87.898 Personal history of other specified conditions; Z80.42 Family history of malignant neoplasm of prostate
CPT/HCPCS: 99204

== ENCOUNTER → 2024-08-09 15:00 | Outpatient (BNVA) | payer OTHER, SELFPAY | PROVIDERS: PCP Internal Medicine; Visit Provider Nurse Practitioner Family | DX: R39.11 Hesitancy of micturition (principal); R39.15 Urgency of urination; R53.83 Other fatigue; R35.0 Frequency of micturition; E29.1 Testicular hypofunction; N32.0 Bladder-neck obstruction; N40.1 Benign prostatic hyperplasia with lower urinary tract symptoms; R33.8 Other retention of urine; R35.1 Nocturia; R39.12 Poor urinary stream; Z87.898 Personal history of other specified conditions; Z80.42 Family history of malignant neoplasm of prostate | CPT/HCPCS: 51798; 99202 ==

== ENCOUNTER 2024-08-30 08:02 | Outpatient (REF) | payer OTHER, SELFPAY ==
[2024-09-01 07:44] LABS: Follicle Stimulating Hormone 6.9 mIU/mL (1.4-12.8); Prolactin 5.5 ng/mL (2.0-18.0); Sex Hormone Binding Globulin 22 nmol/L (10-50)
[2024-09-04 14:14] LABS: Testosterone, Free 94.8 pg/mL (35.0-155.0); Testosterone, Total 379 ng/dL (250-1100)
[2024-09-06 07:27] LABS: Estradiol Ultra Sensitive 21 pg/mL (< OR = 29)
== END 2024-08-30 08:03 | disposition home or self-care (01) ==
LOC: HO.HMGCLDS 08:02
PROVIDERS: PCP Internal Medicine; Visit Provider Nurse Practitioner Family
DX: R53.83 Other fatigue (principal); E29.1 Testicular hypofunction
CPT/HCPCS: 36415; 82670; 83001; 83002; 84146; 84270; 84402; 84403

== ENCOUNTER 2024-09-26 13:49 | Outpatient (REF) | payer OTHER, SELFPAY ==
--- NOTE | ~2024-09-26 | US_ITS ---
CLINICAL HISTORY: R39.9 - Unspecified symptoms and signs involving the genitourinary system US Renal Comparison: None Findings: Right kidney normal size and echotexture, 11.0 cm length. 9 mm benign upper pole cyst. Left kidney normal size and echotexture, 11.4 cm length. No hydronephrosis of either kidney. Normal color Doppler. Urinary bladder is unremarkable. Prevoid volume 188 mL. Postvoid volume 22 mL. Bilateral ureteral jets are visualized. Prostate volume: 54 mL, mildly enlarged. IMPRESSION: 1. Normal kidneys. 2. Mildly enlarged prostate gland. This document has been electronically signed by: Mingo Mccabe MD on 09/27/2024 13:23:35
--- OUTSIDE RECORDS SUMMARY | 2024-09-26 15:50 | XMS_ITS | Clinical Summary ---
Author Organization [facility] Address [address] [place] [address] Care Team Providers Care Grain Miller Helper Name Role Phone Unavailable Primary Care Provider Unavailabl e Social History Tobacco Use Types Packs/Day Years Used Date Smoking Tobacco: Never Assessed Sex and Gender Information Value Date Recorded Sex Assigned at Not on file Legal Sex Male 8:48 AM PST Gender Identity Not on file Sexual Orientation Not on file Plan of Treatment Not on file
--- OUTSIDE RECORDS SUMMARY | 2024-09-26 15:50 | XMS_ITS | Encounter Summary ---
Author Organization [facility] [place] Address [address] [place] [address] Care Team Providers Care Mineral Surveyor Name Role Phone Unavailable Primary Care Provider Unavailabl e Prior Encounters Date Type Department Care Team Description 08/22/2019 Converted CPS Chart Documents [facility] [address] , [address] [place] [address] <No scans attached> 08/22/2019 Converted 13x Documents [facility] [address] , [address] [place] [address] <No scans attached> Plan of Treatment Not on file Procedures Procedure Name Priority Date/Time Associated Diagnosis Comments PERIODIC ORAL EVALUATION - ESTABLISHED PATIENT Routine 04/29/2018 1:00 AM MDT ORAL HYGIENE INSTRUCTIONS Routine 2017 1:00 AM MDT TOPICAL APPLICATION OF FLUORIDE VARNISH Routine 04/29/2018 1:00 AM MDT PROPHYLAXIS - ADULT Routine 04/29/2018 1 :00 AM MDT CANCELLED APPOINTMENT Routine 04/26/2018 1:00 AM MDT CANCELLED APPOINTMENT Routine 04/26/2018 1:00 AM MDT PERIODIC ORAL EVALUATION - ESTABLISHED PATIENT Routine 10/20/2017 1:00 AM MDT ORAL HYGIENE INSTRUCTIONS Routine 2017 1:00 AM MDT PROPHYLAXIS - ADULT Routine 10/20/2017 1 :00 AM MDT BITEWINGS - FOUR RADIOGRAPHIC IMAGES Routine 10/20/2017 1:00 AM MDT PERIODIC ORAL EVALUATION - ESTABLISHED PATIENT Routine 04/21/2017 1:00 AM MDT ORAL HYGIENE INSTRUCTIONS Routine 2016 1:00 AM MDT PROPHYLAXIS - ADULT Routine 04/21/2017 1 :00 AM MDT PERIODIC ORAL EVALUATION - ESTABLISHED PATIENT Routine 10/14/2016 1:00 AM MDT PROPHYLAXIS - ADULT Routine 10/14/2016 1 :00 AM MDT ORAL HYGIENE INSTRUCTIONS Routine 2016 1:00 AM MDT BITEWINGS - FOUR RADIOGRAPHIC IMAGES Routine 10/14/2016 1:00 AM MDT 14 CORE BUILDUP, INCLUDING ANY PINS WHEN REQUIRED Routine 04/23/2016 1:00 AM MDT 14 CEMENT CROWN Routine 04/23/2016 1:00 AM MDT 14 CERECFIRED CROWNPOST Routine 04/23/20 16 1:00 AM MDT ORAL HYGIENE INSTRUCTIONS Routine 2015 1:00 AM MDT PROPHYLAXIS - ADULT Routine 04/15/2016 1 :00 AM MDT PERIODIC ORAL EVALUATION - ESTABLISHED PATIENT Routine 04/15/2016 1:00 AM MDT ORAL HYGIENE INSTRUCTIONS Routine 2015 1:00 AM MST PROPHYLAXIS - ADULT Routine 10/04/2015 1 :00 AM MST PERIODIC ORAL EVALUATION - ESTABLISHED PATIENT Routine 10/04/2015 1:00 AM MST BITEWINGS - FOUR RADIOGRAPHIC IMAGES Routine 10/04/2015 1:00 AM MST INTRAORAL PHOTO Routine 10/04/2015 1:00 AM MST INTRAORAL PHOTO Routine 10/04/2015 1:00 AM MST INTRAORAL PHOTO Routine 10/04/2015 1:00 AM MST INTRAORAL PHOTO Routine 10/04/2015 1:00 AM MST MISSED APPOINTMENT Routine 09/26/2015 1: 00 AM MST 15 LO AMALGAM 2 SURFACE Routine 03/20/20 15 1:00 AM MDT 4 DO AMALGAM 2 SURFACE Routine 5 1:00 AM MDT 3 LO AMALGAM 2 SURFACE Routine 5 1:00 AM MDT 2 LO AMALGAM 2 SURFACE Routine 5 1:00 AM MDT 31 O AMALGAM 1 SURFACE Routine 5 1:00 AM MDT 30 O AMALGAM 1 SURFACE Routine 5 1:00 AM MDT 20 O AMALGAM 1 SURFACE Routine 5 1:00 AM MDT 19 O AMALGAM 1 SURFACE Routine 5 1:00 AM MDT 18 B AMALGAM 1 SURFACE Routine 5 1:00 AM MDT 5 O AMALGAM 1 SURFACE Routine 03/20/2015 1:00 AM MDT PERIODIC ORAL EVALUATION - ESTABLISHED PATIENT Routine 03/20/2015 1:00 AM MDT ORAL HYGIENE INSTRUCTIONS Routine 2014 1:00 AM MDT PROPHYLAXIS - ADULT Routine 03/20/2015 1 :00 AM MDT 31 B COMPOSITE FILLING Routine 5 1:00 AM MDT CANCELLED APPOINTMENT Routine 02/22/2015 1:00 AM MDT 14 LO AMALGAM 2 SURFACE Routine 08/22/19 1:00 AM MST ORAL HYGIENE INSTRUCTIONS Routine 2014 1:00 AM MST PROPHYLAXIS - ADULT Routine 08/22/2014 1 :00 AM [facility] COMPREHENSIVE ORAL EVALUATION - NEW OR ESTABLISHED PATIENT Routine 08/22/2014 1:00 AM MST PANORAMIC RADIOGRAPHIC IMAGE Routine 08/22/2014 1:00 AM [facility] INTRAORAL - COMPREHENSIVE SERIES OF RADIOGRAPHIC IMAGES Routine 08/22/2014 1:00 AM MST INTRAORAL PHOTO Routine 08/22/2014 1:00 AM MST INTRAORAL PHOTO Routine 08/22/2014 1:00 AM MST INTRAORAL PHOTO Routine 08/22/2014 1:00 AM MST INTRAORAL PHOTO Routine 08/22/2014 1:00 AM MST INTRAORAL PHOTO Routine 08/22/2014 1:00 AM MST INTRAORAL PHOTO Routine 08/22/2014 1:00 AM MST INTRAORAL PHOTO Routine 08/22/2014 1:00 AM MST INTRAORAL PHOTO Routine 08/22/2014 1:00 AM MST INTRAORAL PHOTO Routine 08/22/2014 1:00 AM MST INTRAORAL PHOTO Routine 08/22/2014 1:00 AM ABBY 14 MOBL COMPOSITE FILLING Routine 2014 1:00 AM [facility] Visit Diagnoses Not on file
== END 2024-09-26 13:50 | disposition home or self-care (01) ==
LOC: HO.HMGCX 13:49
PROVIDERS: PCP Internal Medicine; Visit Provider Nurse Practitioner Family
DX: R39.9 Unspecified symptoms and signs involving the genitourinary system (principal)
CPT/HCPCS: 76770

== ENCOUNTER → 2024-09-26 13:51 | Outpatient (BNV) | payer OTHER, SELFPAY | PROVIDERS: PCP Internal Medicine; Visit Provider Radiology Vascular & Interventional Radiology | DX: N28.1 Cyst of kidney, acquired (principal); N40.1 Benign prostatic hyperplasia with lower urinary tract symptoms | CPT/HCPCS: 76770 ==

== ENCOUNTER 2024-10-04 07:33 | Outpatient (AMB) | payer OTHER, SELFPAY ==
--- OUTSIDE RECORDS SUMMARY | 2024-10-04 07:36 | XMS_ITS | Clinical Summary ---
Author Organization [facility] [place] Address [address] [place] [address] Care Team Providers Care Offshore Wind Operations Manager Name Role Phone Unavailable Primary Care Provider [...]
--- OUTSIDE RECORDS SUMMARY | 2024-10-04 07:36 | XMS_ITS | Encounter Summary ---
Author Organization [facility] [place] Address [address] [place] [address] Care Team Providers Care Seconds Handler Name Role Phone Unavailable Primary Care Provider Unavailabl e Prior Encounters Date Type Department Care Team Description 08/22/2019 Converted CPS Chart Documents [facility] [address] , [address] [place] [address] <No scans attached> 08/22/2019 Converted 13x Documents [facility] [address] [place] [address] <No scans attached> Plan of Treatment Not [...] - ADULT Routine 08/22/2014 1 :00 AM [facility] COMPREHENSIVE ORAL EVALUATION - NEW OR ESTABLISHED PATIENT Routine 08/22/2014 1:00 AM MST PANORAMIC RADIOGRAPHIC IMAGE Routine 08/22/2014 1:00 AM [facility] INTRAORAL - COMPREHENSIVE SERIES OF [...] MOBL COMPOSITE FILLING Routine 2014 1:00 AM [facility] Visit Diagnoses Not on file
--- NOTE | 2024-10-04 07:41 | A.OFFVIS_ITS ---
Intake Visit Reasons: 3 month follow up/ US/ Testo/PVR(set) Intake Note: Patient presents today for follow up on: Urinary Urgency,Frequency, ultrasound and psa lab results * Imaging Completed: 09/26/24 * Testosterone: 379; Free Testosterone: 94.8 Urology Med: Alfuzosin Antibiotic Allergy: Penicillins Blood Thinner: None Family History of Prostate Cancer- Grandfather PVR: Music Copyist Required: No Accompanied by: Self / Same As Patient Allergies Penicillins Allergy (Mild, Verified 10/04/24 08:51) hives Medication List - Last Reconciled 10/04/24 by STANLEY Le-DORIAN atorvastatin 40 mg PO BEDTIME clomiphene citrate 100 mg (2 x 50 mg) PO DAILY 7 days hydrocortisone 2.5% appl topical ketoconazole 2% topical multivitamin 1 tab PO DAILY omega [id number]-gqp-agr-fish oil 60-90-500 mg (Fish Oil) 1 cap PO DAILY oxybutynin chloride ER 10 mg PO DAILY 30 days HPI Comments Details: Jeison is a very pleasant 54-year-old male patient of Dr. Zuniga. He has a past medical history of post Lyme disease syndrome, family history of prostate cancer, tinnitus, mixed dyslipidemia, internal and external hemorrhoids, nocturia, hypertriglyceridemia, osteoarthritis, and hyperlipidemia. He presents to the office today for follow-up. Of note, patient was seen approximately 2 months ago as a new patient for ongoing lower urinary tract symptoms as well as borderline hypogonadism at which time labs were ordered as well as a retroperitoneal ultrasound for further assessment evaluation. These results were reviewed with the patient today. Retroperitoneal ultrasound 09/27 notes bilateral kidneys are normal in size and echotexture. Normal kidneys. Urinary bladder is unremarkable. Pre void bladder volume is approximately 200 mL. Postvoid bladder volume is approximately 20 mL. The prostate is noted to be mildly enlarged with a volume of 54 mL. Labs are as follows: FSH: 08/27 6.9 Estradiol: 08/27 21 LH: 08/27 5.0 Prolactin: 08/27 5.5 SHBG 08/27 22 Total testosterone: 06/26 293, 08/27 379 Free testosterone: 06/26 76.2, 08/27 94.8 PSA: 06/26 0.8 He reports no improvement in lower urinary tract symptoms with trial of alfuzosin since his last office visit. He continues to report episodes of urinary urgency, urinary frequency, and at times urinary hesitancy. In office urinalysis results reviewed with the patient today. PVR 45 mL. We discussed trial of stem testing for borderline low testosterone. He also does have a family history of prostate cancer. He reports maternal grandfather had prostate cancer. He reports having had testosterone labs drawn with PCP as he continues to experience ongoing issues with fatigue. We discussed at length potential causes of lower urinary tract symptoms patient is experiencing. We discussed mi ldly enlarged prostate on most recent imaging. We discuss trial of oxybutynin as alfuzosin was unsuccessful. We discussed potential for near future in office cystoscopy and or urodynamics for further assessment evaluation. He otherwise denies hematuria, dysuria, foul smelling urine, flank pain, fever, and or chills. [facility] Medical History Post-Lyme disease syndrome Family history of prostate cancer Thrombosed external hemorrhoid Tinnitus Mixed dyslipidemia Internal and external bleeding hemorrhoids History of fracture of clavicle History of fracture of left ankle Nocturia Familial hypertriglyceridemia Impaired fasting glucose Osteoarthritis Hyperlipidemia Surgical History H/O wisdom tooth extraction History of shoulder surgery History of bilateral hip arthroplasty Family History Father Substance use disorder Pancreatitis Alcoholism Familial hypertriglyceridemia Mother Mental health disorder Breast cancer, Onset Age: 72 Sister Mental health disorder Sister Mental health disorder Paternal Grandfather Familial hypertriglyceridemia Prostate cancer Social History Housing: House Alcohol intake: current Alcohol intake frequency: a few times a week Patient Tobacco Use Status: Never used Tobacco e-Cigarette/Vaping Use: Never Used service: No Current occupational status: retired Cognitive needs: No Hearing needs: No Vision needs: Yes Review of Systems Const All systems reviewed & are unremarkable except as noted in HPI and below Physical Exam Const General: cooperative, healthy appearing, comfortable, no acute distress, well developed, alert and awake Orientation/consciousness: patient oriented x3 Limitations: no limitations HEENT Head: Yes normal to inspection, Yes normocephalic and Yes atraumatic Ears: hearing grossly normal bilaterally Eyes General: appearance normal, both eyes and all related structures Neck Neck: Yes normal visual inspection and Yes trachea midline Chest Chest palpation & inspection: normal inspection of the chest Resp Effort & Inspection: normal respiratory effort and able to speak in complete sentences Cardio Rate: regular rate GI Inspection: Yes normal to inspection General: Yes no CVA tenderness Back/Spine/Pelvis Back: no CVA tenderness Skin General skin exam: no rashes or lesions noted Neuro General: patient oriented x3 Extrem General: Yes normal to inspection Psych Appearance: grossly normal and well kempt Mental Status: mental status grossly normal Speech and movement: Normal speech and movement present and Clear speech present Affect: normal affect Attitude: cooperative Thought process: Normal thought process present Thought content: Normal thought content present Insight: Fair insight present (Psych) Judgement: Fair judgement present (Psych) Office Procedures Post Void Residual Post Residual Void Post Void Residual (PVR): 45 [id number] Void Residual by ultrasound Results AMB Urinalysis, Automated UA Leukoctes 0 Haroon/uL Last Edit by Andrzej Love on 10/04/24 08:01 UA Nitrite Last Edit by Andrzej Love on 10/04/24 08:01 UA Urobilinogen 0.2 mg/dL Last Edit by Andrzej Love on 10/04/24 08:01 UA Protein 0 mg/dL Last Edit by Andrzej Love on 10/04/24 08:01 UA pH 6.5 Last Edit by Andrzej Love on 10/04/24 08:01 UA Blood 0 Tono/uL Last Edit by Andrzej Love on 10/04/24 08:01 UA Specific Kamiah 1.015 Last Edit by Andrzej Love on 10/04/24 08:01 UA Ketone Last Edit by Andrzej Love on 10/04/24 08:01 UA Bilirubin 0 mg/dL Last Edit by Andrzej Love on 10/04/24 08:01 UA Glucose 0 mg/dL Last Edit by Andrzej Love on 10/04/24 08:01 Results Reviewed Results Reviewed: Laboratory Last Values Urine pH (Auto) 6.5 10/04/24 08:00 Specific Kamiah (Auto) 1.015 10/04/24 08:00 Urine Protein (Auto) 0 mg/dL 10/04/24 08:00 Glucose (UA)(Auto) 0 mg/dL 10/04/24 08:00 Urine Blood (Auto) 0 Tono/uL 10/04/24 08:00 Urine Bilirubin (Auto) 0 mg/dL 10/04/24 08:00 Urine Urobilinogen (Auto) 0.2 mg/dL 10/04/24 08:00 Leukocyte Esterase (Auto) 0 Haroon/uL 10/04/24 08:00 Date of Service: 09/26/24 US Renal Comparison: None Findings: Right kidney normal size and echotexture, 11.0 cm length. 9 mm benign upper pole cyst. Left kidney normal size and echotexture, 11.4 cm length. No hydronephrosis of either kidney. Normal color Doppler. Urinary bladder is unremarkable. Prevoid volume 188 mL. Postvoid volume 22 mL. Bilateral ureteral jets are visualized. Prostate volume: 54 mL, mildly enlarged. IMPRESSION: 1. Normal kidneys. 2. Mildly enlarged prostate gland. Assessment & Plan Assessment & Plan (1) Urinary frequency: Code(s): R35.0 - Frequency of micturition Category: Medical (2) Urinary urgency: Code(s): R39.15 - Urgency of urination Category: Medical (3) Lower urinary tract symptoms: Code(s): R39.9 - Unspecified symptoms and signs involving the genitourinary system Category: Medical (4) Enlarged prostate: Code(s): N40.0 - Benign prostatic hyperplasia without lower urinary tract symptoms Category: Medical Plan In office urinalysis results reviewed with the patient today; as noted above. PVR 45 mL. Recent retroperitoneal ultrasound results reviewed with the patient today; as noted above. Recent labs reviewed with the patient today; as noted above. Start Clomid as discussed and prescribed; we discussed importance of obtaining labs status post completion of Clomid Stop alfuzosin. Start oxybutynin. We discussed potential for near future in office urodynamics and or cystoscopy for further assessment evaluation. We discussed bladder triggers/irritants. Will obtain testosterone and LH s/p completion of clomid Follow-up in 1-2 months with labs to be completed prior; or sooner with any issues, concerns, and or questions. Orders: Orders Testosterone, Free/Total Today E11.69 - Type 2 diabetes mellitus with other specified complication, N52.1 - Erectile dysfunction due to diseases classified elsewhere AMB Urinalysis Automated Today Z13.9 - Encounter for screening, unspecified Lutenizing Hormone Today E11.69 - Type 2 diabetes mellitus with other specified complication, N52.1 - Erectile dysfunction due to diseases classified elsewhere AMB Post Void Residual by ultrasound Today R35.0 - Frequency of micturition Medications: New clomiphene citrate Take 2 tablets daily for 7 days and [facility] [id number] 100 mg (2 x 50 mg) PO DAILY 14 tabs 0RF 7 days E29.1 - Testicular hypofunction, R79.89 - Other specified abnormal findings of blood chemistry oxybutynin chloride ER 10 mg PO DAILY 30 tabs 3RF 30 days N32.81 - Overactive bladder Discontinued alfuzosin ER Take before bedtime Discontinued Reason: Doctor's Order 10 mg PO BEDTIME 30 days 30 tabs 3RF N32.0 - Bladder-neck obstruction, N40.1 - Benign prostatic hyperplasia with lower urinary tract symptoms, R33.9 - Retention of urine, unspecified, R35.1 - Nocturia, R39.12 - Poor urinary stream Patient Instructions: The patient had an opportunity to ask questions regarding the treatment plan. All questions were answered. Physical exam, labs, and imaging were discussed and reviewed in detail. As well as risks, benefits, and discussion of treatment choices. No major barriers to understanding were identified. The patient expressed understanding and agreement with the above treatment plan. The patient was made aware they should contact our office by phone for worsening of their current condition, the appearance of new symptoms, or with any questions or concerns. Compliance is encouraged with any medications and follow up testing that is ordered. It is a privilege to be allowed the opportunity to participate in? your urological care.? Again, if you have any questions or concerns If you have any questions or concerns please do not hesitate to contact me. The office is [phone]. This note is constructed using voice recognition software. While every effort has been made to ensure accuracy composition weatherboard installer errors may have been included. Yours sincerely, STANLEY Le-DORIAN Coding Level of Care Code Est Pt Level 4 (62133) Diagnoses Urinary frequency R35.0 Urinary urgency R39.15 Lower urinary tract symptoms R39.9 Enlarged prostate N40.0 CPT Codes Post Residual Void - PVR CPT Code: 93796-Disd Void Residual by ultrasound ([id number])
== END 2024-10-04 08:22 | disposition home or self-care (01) ==
PROVIDERS: PCP Internal Medicine; Visit Provider Nurse Practitioner Family
DX: R35.0 Frequency of micturition (principal); R39.15 Urgency of urination; R39.9 Unspecified symptoms and signs involving the genitourinary system; N40.0 Benign prostatic hyperplasia without lower urinary tract symptoms; Z13.9 Encounter for screening, unspecified
CPT/HCPCS: 99214

== ENCOUNTER → 2024-10-04 07:33 | Outpatient (BNVA) | payer OTHER, SELFPAY | PROVIDERS: PCP Internal Medicine; Visit Provider Nurse Practitioner Family | DX: N40.1 Benign prostatic hyperplasia with lower urinary tract symptoms (principal); R35.0 Frequency of micturition; R39.15 Urgency of urination; R39.9 Unspecified symptoms and signs involving the genitourinary system | CPT/HCPCS: 51798; 81003; 99212 ==

== ENCOUNTER 2024-12-13 07:43 | Outpatient (AMB) | payer OTHER, SELFPAY ==
--- NOTE | 2024-12-13 07:43 | A.OFFVIS_ITS ---
Intake Visit Reasons: discuss medication Intake Note: Patient presents today for tele visit follow up on: Medication Urology Med: Oxybutynin Antibiotic Allergy: Penicillins Blood Thinner: None Family History of Prostate Cancer- Grandfather Graduate Civil Engineer Required: No Accompanied by: Self / Same As Patient Allergies Penicillins Allergy (Mild, Verified 12/13/24 11:15) hives Medication List - Last Reconciled 12/13/24 by STANLEY Le-DORIAN atorvastatin 40 mg PO BEDTIME hydrocortisone 2.5% appl topical ketoconazole 2% topical multivitamin 1 tab PO DAILY omega 1-pvl-iue-fish oil 60-90-500 mg (Fish Oil) 1 cap PO DAILY tadalafil (Cialis) 5 mg PO DAILY 90 days HPI Comments Details: Jeison is a very pleasant 54-year-old male patient of Dr. Zuniga. He has a past medical history of post Lyme disease syndrome, family history of prostate cancer, tinnitus, mixed dyslipidemia, internal and external hemorrhoids, nocturia, hypertriglyceridemia, osteoarthritis, and hyperlipidemia. He is being followed up on today via video telehealth for his lower urinary tract symptoms and borderline hypogonadism. In discussion with the patient today he continues to report lower urinary tract symptoms despite trial of oxybutynin as well as alfuzosin. He reports continuing with episodes of nocturia, weak urinary stream, urinary urgency, and urinary frequency. Previous workup has included a retroperitoneal ultrasound 09/27 notes bilateral kidneys are normal in size and echotexture. Normal kidneys. Urinary bladder is unremarkable. Pre void bladder volume is approximately 200 mL. Postvoid bladder volume is approximately 20 mL. The prostate is noted to be mildly enlarged with a volume of 54 mL. Labs are as follows: FSH: 08/27 6.9 Estradiol: 08/27 21 LH: 08/27 5.0 Prolactin: 08/27 5.5 SHBG 08/27 22 Total testosterone: 06/26 293, 08/27 379 Free testosterone: 06/26 76.2, 08/27 94.8 PSA: 06/26 0.8 He reports he was unable to initiate Clomid as it was too expensive. We discussed borderline low testosterone and further treatment options. We discussed trial of low-dose Cialis for bladder stability as well as borderline hypogonadism. We discussed trial of stim testing for borderline low testosterone however given cost of Clomid this is not an option for the patient at this time. He also does have a family history of prostate cancer. He reports maternal grandfather had prostate cancer. We discussed potential causes of lower urinary tract symptoms patient is experiencing as well as further treatment options and risks and benefits of these treatment options. We discussed potential for near future in office cystoscopy and or urodynamics for further assessment evaluation. He otherwise denies hematuria, dysuria, foul smelling urine, flank pain, fever, and or chills. [facility] Medical History Post-Lyme disease syndrome Family history of prostate cancer Thrombosed external hemorrhoid Tinnitus Mixed dyslipidemia Internal and external bleeding hemorrhoids History of fracture of clavicle History of fracture of left ankle Nocturia Familial hypertriglyceridemia Impaired fasting glucose Osteoarthritis Hyperlipidemia Surgical History H/O wisdom tooth extraction History of shoulder surgery History of bilateral hip arthroplasty Family History Father Substance use disorder Pancreatitis Alcoholism Familial hypertriglyceridemia Mother Mental health disorder Breast cancer, Onset Age: 72 Sister Mental health disorder Sister Mental health disorder Paternal Grandfather Familial hypertriglyceridemia Prostate cancer Social History Housing: House Alcohol intake: current Alcohol intake frequency: a few times a week Patient Tobacco Use Status: Never used Tobacco e-Cigarette/Vaping Use: Never Used service: No Current occupational status: retired Cognitive needs: No Hearing needs: No Vision needs: Yes Review of Systems Const All systems reviewed & are unremarkable except as noted in HPI and below Physical Exam Const General: cooperative, healthy appearing, comfortable, no acute distress, well developed, alert and awake Resp Effort & Inspection: normal respiratory effort and able to speak in complete sentences Psych Speech and movement: Clear speech present Affect: normal affect Attitude: cooperative Thought content: Normal thought content present Insight: Fair insight present (Psych) Judgement: Fair judgement present (Psych) Telehealth Telehealth Telehealth Platform: [employer] Location of provider rendering services: practice address Location of patient: address on file Patient Identification confirmed using: Name, : Yes Telehealth method: video Patient verbally consented to treatment: Yes Patient verbally consented to billing insurance company: Yes Patient informed of any privacy concerns related to visit: Yes Minutes spent on Phone/Video with Pt.: 20 Assessment & Plan Assessment & Plan (1) Enlarged prostate: Code(s): N40.0 - Benign prostatic hyperplasia without lower urinary tract symptoms Category: Medical (2) History of urinary hesitancy: Code(s): Z87.898 - Personal history of other specified conditions Category: Medical (3) Urinary frequency: Code(s): R35.0 - Frequency of micturition Category: Medical (4) Urinary urgency: Code(s): R39.15 - Urgency of urination Category: Medical (5) Lower urinary tract symptoms: Code(s): R39.9 - Unspecified symptoms and signs involving the genitourinary system Category: Medical (6) Nocturia: Code(s): R35.1 - Nocturia Category: Medical Plan Stop oxybutynin. Start Cialis 5 mg daily as discussed and prescribed. Patient unable to initiate stim testing at this time due to cost. We discussed potential causes of lower urinary tract symptoms patient is experiencing as well as further treatment options and risks and benefits of these treatment options. We discussed potential near future in office cystoscopy and or urodynamics for further assessment evaluation. Will trial low-dose Cialis to assist with borderline hypogonadism as well as bladder stability. We discussed importance of limiting fluids 2-3 hours prior to bed to decrease episodes of nocturia. Follow-up in 1-3 months; or sooner with any issues, concerns, and or questions. Medications: New tadalafil (Cialis) [id number] [facility] [id number] Member [id number] 5 mg PO DAILY 90 tabs 0RF 90 days Discontinued oxybutynin chloride ER Discontinued Reason: Doctor's Order 10 mg PO DAILY 30 tabs 3RF 30 days N32.81 - Overactive bladder Patient Instructions: The patient had an opportunity to ask questions regarding the treatment plan. All questions were answered. Physical exam, labs, and imaging were discussed and reviewed in detail. As well as risks, benefits, and discussion of treatment choices. No major barriers to understanding were identified. The patient expressed understanding and agreement with the above treatment plan. The patient was made aware they should contact our office by phone for worsening of their current condition, the appearance of new symptoms, or with any questions or concerns. Compliance is encouraged with any medications and follow up testing that is ordered. It is a privilege to be allowed the opportunity to participate in? your urological care.? Again, if you have any questions or concerns If you have any questions or concerns please do not hesitate to contact me. The office is [phone]. This note is constructed using voice recognition software. While every effort has been made to ensure accuracy sleep technologist errors may have been included. Yours sincerely, SAÚL Le Coding Level of Care Code Tele Est Pt Level 4 (98718) Diagnoses Enlarged prostate N40.0 History of urinary hesitancy Z87.898 Urinary frequency R35.0 Urinary urgency R39.15 Lower urinary tract symptoms R39.9 Nocturia R35.1
--- OUTSIDE RECORDS SUMMARY | 2024-12-13 07:45 | XMS_ITS | Encounter Summary ---
Author Organization [facility] Address [address] [place] [address] Care Team Providers Care Return Checker Name Role Phone Unavailable Primary Care Provider Unavailabl e Prior Encounters Date Type Department Care Team Description 08/22/2019 Converted CPS Chart Documents [facility] [address] , [address] [place] [address] <No scans attached> 08/22/2019 Converted 13x Documents [facility] [address] , [address] [place] [address] <No scans attached> Plan of Treatment Not [...] - ADULT Routine 08/22/2014 1 :00 AM [facility] COMPREHENSIVE ORAL EVALUATION - NEW OR ESTABLISHED PATIENT Routine 08/22/2014 1:00 AM [facility] PANORAMIC RADIOGRAPHIC IMAGE Routine 08/22/2014 1:00 AM [facility] INTRAORAL - COMPREHENSIVE SERIES OF RADIOGRAPHIC IMAGES [...] MOBL COMPOSITE FILLING Routine 2014 1:00 AM [facility] Visit Diagnoses Not on file
--- OUTSIDE RECORDS SUMMARY | 2024-12-13 07:45 | XMS_ITS | Clinical Summary ---
Author Organization [facility] Address [address] [place] [address] Care Team Providers Care Farm Management Agent Name Role Phone Unavailable Primary Care Provider [...]
== END 2024-12-13 08:23 | disposition home or self-care (01) ==
LOC: HO.HUSH 07:43
PROVIDERS: PCP Internal Medicine; Visit Provider Nurse Practitioner Family
DX: N40.0 Benign prostatic hyperplasia without lower urinary tract symptoms (principal); Z87.898 Personal history of other specified conditions; R35.0 Frequency of micturition; R39.15 Urgency of urination; R39.9 Unspecified symptoms and signs involving the genitourinary system; R35.1 Nocturia
CPT/HCPCS: 99214

== ENCOUNTER → 2024-12-13 07:43 | Outpatient (BNVA) | payer OTHER, SELFPAY | PROVIDERS: PCP Internal Medicine; Visit Provider Nurse Practitioner Family ==

== ENCOUNTER 2025-01-30 07:42 | Outpatient (REF) | payer OTHER, SELFPAY ==
--- OUTSIDE RECORDS SUMMARY | 2025-01-30 07:44 | XMS_ITS | Clinical Summary ---
Author Organization [facility] Address [address] [place] [address] Care Team Providers Care House Father Name Role Phone Unavailable Primary Care Provider [...]
[2025-01-30 10:31] LABS: Estimated Average Glucose 114 mg/dL; Hemoglobin A1c % 5.6 % (<6.0)
[2025-01-30 10:36] LABS: Alanine Aminotransferase 27 U/L (0-40); Anion Gap 11 (12-20); Aspartate Amino Transferase 28 U/L (5-37); Blood Urea Nitrogen 19 mg/dL (9-16); Calcium 8.7 mg/dL (8.4-10.2); Carbon Dioxide 27 mmol/L (22-29); Chloride 107 mmol/L (96-108); Cholesterol 139 mg/dL (<200); Estimated Glomerular Filt Rate > 60; Glucose Fasting 102 mg/dL (60-99); HDL Cholesterol 41 mg/dL (>40); LDL Cholesterol Calculated 58 mg/dL (<100); Potassium 4.1 mmol/L (3.3-5.1); Sodium 141 mmol/L (135-145); Triglycerides 202 mg/dL (<150)
[2025-01-30 10:58] LABS: Vitamin D 25-OH Total 73.3 ng/mL (>30)
== END 2025-01-30 07:43 | disposition home or self-care (01) ==
LOC: HO.HMGCLDS 07:42
PROVIDERS: PCP Internal Medicine; Visit Provider Internal Medicine
DX: E78.1 Pure hyperglyceridemia (principal); E78.2 Mixed hyperlipidemia; R73.01 Impaired fasting glucose; R53.82 Chronic fatigue, unspecified; R53.81 Other malaise
CPT/HCPCS: 36415; 80048; 80061; 82306; 83036; 84450; 84460

== ENCOUNTER 2025-02-06 09:34 | Outpatient (AMB) | payer OTHER, SELFPAY ==
--- OUTSIDE RECORDS SUMMARY | 2025-02-06 10:06 | XMS_ITS | Clinical Summary ---
Author Organization [facility] Address [address] [place] [address] Care Team Providers Care Ssas Developer Name Role Phone Unavailable Primary Care Provider [...]
--- NOTE | 2025-02-06 10:45 | A.OFFPC_ITS ---
Vital Signs 02/06/25 10:46 Height 6 ft 2 in Weight 193 lb BMI 24.8 BP 100/62 Blood Pressure Location Rt brachial Position Sitting Respiration 15 Pulse 60 Pulse Source Pulse Oximeter Temp 98.2 F Temp Source Oral Pulse Oximetry (%) 97 Oxygen Delivery Method Room Air Intake Visit Reasons: 6 months follow up PHQ-9 needed. Intake Note: Pt is here today for his 6mo. f/u Allergies Penicillins Allergy (Mild, Verified 02/06/25 11:08) hives Medication List - Last Reconciled 02/06/25 by Debbie Zuniga MD atorvastatin 40 mg PO BEDTIME multivitamin 1 tab PO DAILY omega 4-igi-uin-fish oil 60-90-500 mg (Fish Oil) 1 cap PO DAILY tadalafil (Cialis) 5 mg PO DAILY 90 days Tobacco use date assessed: 02/06/25 Dental Screening Dental Screen Date: 02/06/25 Did you have a dental visit in the last 12 months?: Yes Did you have a dental problem in the last 6 months where you did not have access to dental care?: No Was dental information given to patient?: Patient has dentist HPI 6 months follow up PHQ-9 needed. HPI Details 54-year-old male with history of hyperli pidemia, and erectile dysfunction, here today for follow-up. He is currently taking [place] 3 fatty acid supplements and atorvastatin 40 mg daily together with Cialis 5 mg once a day. Latest fasting labs showed impaired fasting glucose but hemoglobin A1c is within normal limits. Improvement in his triglycerides as compared to last check but still not at goal of less than 150 mg/dL, normal LDL cholesterol noted. Liver enzymes are now within normal limits. Complains of pain on base of right foot, worse with walking. Has a painful callus underneath right big toe which he has been trying to remove but keeps coming back. [facility] Medical History (Updated 02/06/25 @ 11:15 by Debbie Zuniga MD) Hallux valgus (acquired), right foot Callus of toe Post-Lyme disease syndrome Family history of prostate cancer Thrombosed external hemorrhoid Tinnitus Mixed dyslipidemia Internal and external bleeding hemorrhoids History of fracture of clavicle History of fracture of left ankle Nocturia Familial hypertriglyceridemia Impaired fasting glucose Osteoarthritis Hyperlipidemia Surgical History H/O wisdom tooth extraction History of shoulder surgery History of bilateral hip arthroplasty Family History Father Substance use disorder Pancreatitis Alcoholism Familial hypertriglyceridemia Mother Mental health disorder Breast cancer, Onset Age: 72 Sister Mental health disorder Sister Mental health disorder Paternal Grandfather Familial hypertriglyceridemia Prostate cancer Social History Housing: House Alcohol intake: current Alcohol intake frequency: a few times a week Patient Tobacco Use Status: Never used Tobacco e-Cigarette/Vaping Use: Never Used service: No Current occupational status: retired Cognitive needs: No Hearing needs: No Vision needs: Yes Questionnaire PHQ-9 Over the last 2 weeks, how often have you been bothered by any of the following problems? 1. Little interest or pleasure in doing things: several days 2. Feeling down, depressed, or hopeless: several days 3. Trouble falling or staying asleep, or sleeping too much: several days 4. Feeling tired or having little energy: several days 5. Poor appetite or overeating: not at all 6. Feeling bad about yourself - or that you are a failure or have let yourself or your family down: several days 7. Trouble concentrating on things, such as reading the newspaper or watching television: several days 8. Moving or speaking so slowly that other people could have noticed. Or the opposite - being so fidgety or restless that you have been moving around a lot more than usual: not at all 9. Thoughts that you would be better off or of hurting yourself in some way: not at all Total score: 6 Depression Screening Interpretation: Negative Depression Screening Done: Yes 62408 - PHQ-9 Billing: Yes Source: Developed by Drs. Mustapha Yost, Gloria Barnhart, Jamie Espinal and colleagues, with an educational ruba from [employer]. Thrive Questionnaire Date Thrive assessed: 02/06/25 I am a: Patient What is your living situation today?: I have a place to live, but I am worried about losing it in the future Within the past 12 months, did the food you bought not last and you didn't have the money to get more?: Sometimes True Within the past 12 months, did you worry whether your food would run out before you got money to buy more?: Often true Do you have trouble paying for medicines?: Yes Do you have trouble getting transportation to medical appointments?: No Do you have trouble paying your heating and electricity bill?: No Do you have trouble taking care of your child, family member or friend?: No Do you have trouble with day-to-day activities such as bathing, preparing meals, shopping, managing finances, etc.?: No Are you currently unemployed and looking for a job?: No Are you interested in more education?: No Please select the resources that you would like help with: None Currently or been in a relationship where the following occur: No concerns reported THRIVE Score: 3 AUDIT C Alcohol Use Questionnaire (AUDIT-C) 1. How often do you have a drink containing alcohol?: 2-3 times a week 2. How many drinks containing alcohol do you have on a typical day when you are drinking?: 3 or 4 3. How often do you have six or more drinks on one occasion?: Less than monthly Total Score: 5 GABBY-7 AMB Questionnaire GABBY-7 Date GABBY - 7 assessed: 02/06/25 Feeling nervous, anxious, or on edge: 1 = Several days Not being able to stop or control worryin = Several days Worrying too much about different things: 1 = Several days Trouble relaxin = Several days Being so restless that it is hard to sit still: 1 = Several days Becoming easily annoyed or irritable: 1 = Several days Feeling afraid as if something awful might happen: 1 = Several days Total GABBY-7 score (0-4 normal; 5-9 mild; 10-14 moderate; 15-21 severe): 7 Source: Developed by Drs. Mustapha Yost, Gloria Barnhart, Jamie Espinal and colleagues, with an educational ruba from [employer]. Review of Systems Const Reports no additional complaints Eyes Denies change in vision ENT Denies dizziness and Denies nasal congestion Card Denies chest pain, Denies lightheadedness, Denies palpitations and Denies dyspnea Resp Denies chest congestion, Denies cough, Denies dyspnea and Denies wheezing GI Denies abdominal pain, Denies change in bowel habits and Denies heartburn Reports as per HPI, Denies hematuria and Denies erectile dysfunction Musc Reports arthralgias, Denies muscle weakness and Reports stiffness Skin/Breast Details: as per HPI Neuro Denies dizziness Psych Details: Has an upcoming trip scheduled by [place], would like something to help him relax during the flight. Has fear of flying Endo Denies polydipsia, Denies polyuria and Denies palpitations Cody/Lymph Reports no additional complaints Aller/Immun Denies seasonal rhinorrhea and Denies wheezing Physical exam (Primary Care) Vital Signs: Last Vital Signs Temp 98.2 F 02/06/25 10:46 Pulse 60 02/06/25 10:46 Resp 15 02/06/25 10:46 BP 100/62 02/06/25 10:46 Pulse Ox 97 02/06/25 10:46 Oxygen Delivery Method Room Air 02/06/25 10:46 BMI result Body Mass Index 24.8 Tobacco/Smoking Status: Tobacco use Status Tobacco use date assessed 02/06/25 02/06/25 10:47 Patient Tobacco Use Status Never used Tobacco 02/06/25 10:47 e-Cigarette/Vaping Use Never Used 02/06/25 10:47 PHQ-9: PHQ-9 Score PHQ-9: Total score 6 02/06/25 11:24 Depression Screening Interpretation: Negative Thrive Assessment: Date of Thrive Assessment Date Thrive assessed 02/06/25 02/06/25 10:47 Currently or been in a relationship where the following occur: No concerns reported Const General: comfortable, no acute distress and alert Orientation/consciousness: patient oriented x3 HENMT Ears: external ears normal, TM's normal bilaterally and EAC's normal General nose exam: Normal external nose present and No nasal discharge present Mouth: Normal oral and palatal mucosa present, oropharynx normal and moist mucous membranes Eyes General: appearance normal, both eyes and all related structures Conjunctivae: conjunctivae normal Sclerae: sclerae normal Pupils: Equal, round and reactive pupils present EOM: EOMs intact bilaterally Neck Neck: Yes full ROM, Yes no lymphadenopathy and Yes supple Resp Effort & Inspection: normal respiratory effort and able to speak in complete sentences Auscultation: clear to auscultation bilaterally Cardio Rate: regular rate Rhythm: regular rhythm Heart sounds: S1 normal heart sound present and S2 normal heart sound present GI Palpation (GI): Soft to palpation, nontender and no masses Auscultation: normal bowel sounds Male General Exam: Yes normal external exam Back/Spine/Pelvis Back: No back tenderness Skin Other: Hyperpigmented macule on cheek and scattered on upper back, callus tender to palpation on toes, weaning deformity noted on 1st MTP joint right more than the left Neuro General: patient oriented x3, gait normal, tone normal, moves all extremities, Normal light touch and pain sensation and no focal motor deficits Cranial nerves: Yes CN's II-XII intact bilaterally and Yes Equal, round and r eactive pupils present Cognition (Neuro): normal cognition Extrem General: Yes full ROM and Yes no calf tenderness Psych Appearance: grossly normal and well kempt Mental Status: mental status grossly normal Speech and movement: Normal speech and movement present Affect: normal affect Attitude: cooperative Thought process: Normal thought process present Thought content: Normal thought content present Results Reviewed Results Reviewed: Name: Jeison Romero Age/Sex: 54/M : 1970 Unit#: [id number] Attend Dr: Debbie Zuniga MD Re01/30/25 Status: DEP [facility]F [facility] Disch: SPEC : [id number] DONNY: 01/30/25 STATUS: COMP REQ : [id number] RECD: 01/30/25-[address]: Debbie Zuniga MD COMP: 01/30/258 ENTERED: 01/30/[address]: ORDERED: Met Prof Fast, AST, ALT, Lipid Panel, Vitamin D 25-OH Test Result Flag Reference Sodium 141 135-145 mmol/L Potassium 4.1 3.3-5.1 mmol/L CL 107 96-108 mmol/L CO2 27 22-29 mmol/L Gap 11 L 12-20 BUN 19 H 9-16 mg/dL Creat 1.05 0.5-1.4 mg/dL eGFR > 60 Chronic Kidney Disease: Estimated GFR < 60 mL/min/1.73m2 Severe Kidney Disease: Estimated GFR < 15 mL/min/1.73m2 FBS 102 H 60-99 mg/dL A fasting glucose from 100-125 mg/dl is considered impaired (pre-diabetes). CA 8.7 # 8.4-10.2 mg/dL AST (GOT) 28 5-37 U/L ALT (GPT) 27 0-40 U/L Triglyceride 202 H <150 mg/dL Desirable Triglyceride: less than 150 mg/dL Borderline High Triglyceride 150-199 mg/dL High Triglyceride: 200-499 mg/dL Very High Triglyceride: greater than or equal to 5OO mg/dL Cholesterol 139 <200 mg/dL Desirable Cholesterol: less than 200 mg/dL Borderline High Cholesterol: 200-239 mg/dL High Cholesterol: greater than 239 mg/dL LDL Calculated 58 <100 mg/dL Desirable LDL: less than 100 mg/dL Near Optimal/Above Optimal LDL: 110-129 mg/dL Borderline High LDL: 130-159 mg/dL High LDL: 160-189 mg/dL Very High LDL: greater than or equal to 190 mg/dL HDL 41 >40 mg/dL Desirable HDL: greater than 40 mg/dL Note: This HDL assay may give artificially low results in patients with liver disease. Vitamin D 25-OH 73.3 >30 ng/mL Health Based Reference Values* < 20 ng/mL Deficient 20-30 ng/mL Insufficient > 30 ng/mL Sufficient Laboratory Tests 01/30/25 07:45 Estimat Average Glucose 114 Hemoglobin A1c % 5.6 Coding Level of Care Code Est Pt Level 4 (88178) Diagnoses Mixed dyslipidemia E78.2 Acquired deformity of right toe M20.61 Laterality: right Impaired fasting glucose R73.01 Fear of flying F40.243 Additional Codes PHQ-9 - 78484 - PHQ-9 Billing: Yes ([id number]) Assessment & Plan Assessment & Plan (1) Mixed dyslipidemia: Code(s): E78.2 - Mixed hyperlipidemia Category: Medical Plan: Improving lipid levels now with triglycerides lower than last check but still not at goal of less than 150 mg/dL. Continued on atorvastatin 40 mg daily at night and [place] 3 fatty acid supplements at least 1 capsule twice a day, reinforced importance of following a low-cholesterol diet and getting regular exercise, repeat another fasting lipid panel in 10/2025 (2) Acquired deformity of toe: Code(s): M20.60 - Acquired deformities of toe(s), unspecified, unspecified foot Qualifiers: Laterality: right Qualified Code(s): M20.61 - Acquired deformities of toe(s), unspecified, right foot Plan: Referred to podiatry (3) Impaired fasting glucose: Code(s): R73.01 - Impaired fasting glucose Category: Medical Plan: Your previous fasting blood sugars were elevated above 100 mg/dL. Latest hemoglobin A1c is at 5.6%. Impaired glucose metabolism increases the risk for developing diabetes mellitus type 2, as well as heart attack and stroke later on. Lifestyle changes that promotes weight loss, healthy eating habits, and regular exercise are important, and can prevent the progression to diabetes (4) Fear of flying: Code(s): F40.243 - Fear of flying Plan: Prescription sent for alprazolam 0.25 mg per tablet to take at least 30 minutes to an hour before flight. Do not drink any alcoholic beverage Orders: Orders Aspartate Amino Transferase 10/02/25 E78.2 - Mixed hyperlipidemia, R73.01 - Impaired fasting glucose Alanine Aminotransferase 10/02/25 E78.2 - Mixed hyperlipidemia, R73.01 - Impaired fasting glucose Basic Metabolic Panel Fasting 10/02/25 E78.2 - Mixed hyperlipidemia, R73.01 - Impaired fasting glucose Lipid Panel 10/02/25 E78.2 - Mixed hyperlipidemia, R73.01 - Impaired fasting glucose Referrals Podiatry Referral L84 - Corns and callosities, M20.11 - Hallux valgus (acquired), right foot, M20.60 - Acquired deformities of toe(s), unspecified, unspecified foot Medications: New alprazolam 0.25 mg PO DAILY PRN 20 tabs 0RF Acute anxiety/fear flying Refilled atorvastatin 40 mg PO BEDTIME 90 tabs 4RF
[2025-02-06 10:46] VITALS: BP 100/62; PULSE 60; RESP 15; TEMP 36.8; O2SAT 97; BMI 24.8
== END 2025-02-06 11:25 | disposition home or self-care (01) ==
LOC: HO.HMCC 09:35
PROVIDERS: PCP Internal Medicine; Visit Provider Internal Medicine
DX: E78.2 Mixed hyperlipidemia (principal); M20.61 Acquired deformities of toe(s), unspecified, right foot; R73.01 Impaired fasting glucose; F40.243 Fear of flying

== ENCOUNTER → 2025-02-06 09:34 | Outpatient (BNVA) | payer OTHER, SELFPAY | PROVIDERS: PCP Internal Medicine; Visit Provider Internal Medicine | DX: E78.2 Mixed hyperlipidemia (principal); N52.9 Male erectile dysfunction, unspecified; M20.61 Acquired deformities of toe(s), unspecified, right foot; R73.01 Impaired fasting glucose; L84 Corns and callosities; M20.11 Hallux valgus (acquired), right foot | CPT/HCPCS: 96127; 99212 ==

== ENCOUNTER 2025-03-13 11:59 | Outpatient (AMB) | payer OTHER, SELFPAY ==
--- NOTE | 2025-03-13 11:59 | MHC.OFFVIS ---
Intake Visit Reasons: 3m follow up Intake Note: Patient presents today via telehealth for 3m follow up Urology Med: Tadalafil Antibiotic Allergy: Penicillins Blood Thinner: None Lab Clerk Required: No Accompanied by: Self / Same As Patient Allergies Penicillins Allergy (Mild, Verified 03/13/25 12:06) hives Medication List - Last Reconciled 03/13/25 by JOSE C LeP- alprazolam 0.25 mg PO DAILY PRN atorvastatin 40 mg PO BEDTIME multivitamin 1 tab PO DAILY omega 1-iis-hzb-fish oil 60-90-500 mg (Fish Oil) 1 cap PO DAILY tadalafil (Cialis) 5 mg PO DAILY 90 days HPI Comments Details: Jeison is a very pleasant 54-year-old male patient of Dr. Zuniga. He has a past medical history of post Lyme disease syndrome, family history of prostate cancer, tinnitus, mixed dyslipidemia, internal and external hemorrhoids, nocturia, hypertriglyceridemia, osteoarthritis, and hyperlipidemia. He is being followed up on today via video telehealth for his lower urinary tract symptoms and borderline hypogonadism. In discussion with the patient today reports significant improvement in lower urinary tract symptoms he had been experiencing with low-dose Cialis for bladder stability. He reports episodes of nocturia, urinary urgency and urinary frequency he had been experiencing have significantly improved. He does continue to experience issues with fatigue and has been attempting to have better sleep hygiene as well as increase his activity and workouts. Previously patient has trialed oxybutynin and alfuzosin without improvement in lower urinary tract symptoms. Previous workup has included a retroperitoneal ultrasound 09/27 noting bilateral kidneys are normal in size and echotexture. Normal kidneys. Urinary bladder is unremarkable. Pre void bladder volume is approximately 200 mL. Postvoid bladder volume is approximately 20 mL. The prostate is noted to be mildly enlarged with a volume of 54 mL. Labs are as follows: FSH: 08/27 6.9 Estradiol: 08/27 21 LH: 08/27 5.0 Prolactin: 08/27 5.5 SHBG 08/27 22 Total testosterone: 06/26 293, 08/27 379 Free testosterone: 06/26 76.2, 08/27 94.8 PSA: 06/26 0.8 We discussed borderline low testosterone and further treatment options. We discussed trial of stim testing for borderline low testosterone however given cost of Clomid this is not an option for the patient at this time. He also does have a family history of prostate cancer. He reports maternal grandfather had prostate cancer. We discussed potential causes of lower urinary tract symptoms patient was experiencing as well as further treatment options and risks and benefits of these treatment options. We discussed potential for near future in office cystoscopy and or urodynamics for further assessment evaluation if symptoms return. He otherwise denies hematuria, dysuria, foul smelling urine, flank pain, fever, and or chills. FOR[facility]LY [facility] Medical History Hallux valgus (acquired), right foot Callus of toe Post-Lyme disease syndrome Family history of prostate cancer Thrombosed external hemorrhoid Tinnitus Mixed dyslipidemia Internal and external bleeding hemorrhoids History of fracture of clavicle History of fracture of left ankle Nocturia Familial hypertriglyceridemia Impaired fasting glucose Osteoarthritis Hyperlipidemia Surgical History H/O wisdom tooth extraction History of shoulder surgery History of bilateral hip arthroplasty Family History Father Substance use disorder Pancreatitis Alcoholism Familial hypertriglyceridemia Mother Mental health disorder Breast cancer, Onset Age: 72 Sister Mental health disorder Sister Mental health disorder Paternal Grandfather Familial hypertriglyceridemia Prostate cancer Social History Housing: House Alcohol intake: current Alcohol intake frequency: a few times a week Patient Tobacco Use Status: Never used Tobacco e-Cigarette/Vaping Use: Never Used service: No Current occupational status: retired Cognitive needs: No Hearing needs: No Vision needs: Yes Review of Systems Const All systems reviewed & are unremarkable except as noted in HPI and below Physical Exam Const General: cooperative, healthy appearing, comfortable, no acute distress, well developed, alert and awake Orientation/consciousness: patient oriented x3 Resp Effort & Inspection: normal respiratory effort and able to speak in complete sentences Neuro General: patient oriented x3 Psych Appearance: well kempt Speech and movement: Clear speech present Affect: normal affect Attitude: cooperative Thought content: Normal thought content present Insight: Fair insight present (Psych) Judgement: Fair judgement present (Psych) Telehealth Telehealth Telehealth Platform: Telephone Location of provider rendering services: practice address Location of patient: address on file Patient Identification confirmed using: Name, : Yes Telehealth method: video Patient verbally consented to treatment: Yes Patient verbally consented to billing insurance company: Yes Patient informed of any privacy concerns related to visit: Yes Minutes spent on Phone/Video with Pt.: 15 Assessment & Plan Assessment & Plan (1) Fatigue: Code(s): R53.83 - Other fatigue Category: Medical (2) Enlarged prostate: Code(s): N40.0 - Benign prostatic hyperplasia without lower urinary tract symptoms Category: Medical (3) History of urinary hesitancy: Code(s): Z87.898 - Personal history of other specified conditions Category: Medical (4) Urinary frequency: Code(s): R35.0 - Frequency of micturition Category: Medical (5) Urinary urgency: Code(s): R39.15 - Urgency of urination Category: Medical (6) Lower urinary tract symptoms: Code(s): R39.9 - Unspecified symptoms and signs involving the genitourinary system Category: Medical (7) Nocturia: Code(s): R35.1 - Nocturia Category: Medical Plan Continue Cialis 5 mg daily as discussed and prescribed; refill provided Patient unable to initiate stim testing at this time due to cost. We discussed potential causes of lower urinary tract symptoms patient was experiencing as well as further treatment options and risks and benefits of these treatment options. We discussed potential near future in office cystoscopy and or urodynamics for further assessment evaluation if symptoms arise. We discussed lifestyle modifications to assist with fatigue as well as borderline low testosterone We discussed importance of continuing to limit fluids 2-3 hours prior to bed to decrease episodes of nocturia. All questions were answered Follow-up in 6 months with labs to be completed prior; or sooner with any issues, concerns, and or questions. Orders: Orders Prolactin 6 Months R53.83 - Other fatigue Lutenizing Hormone 6 Months R53.83 - Other fatigue Estrad Free (Tot Ultra + Free) 6 Months R53.83 - Other fatigue Prostate Specific Antigen 6 Months R53.83 - Other fatigue Sex Hormone Binding Globulin 6 Months R53.83 - Other fatigue Testosterone, Free/Total 6 Months R53.83 - Other fatigue Follicle Stimulating Hormone 6 Months R53.83 - Other fatigue Medications: Refilled tadalafil (Cialis) [id number] [facility] [id number] Member [id number] 5 mg PO DAILY 90 tabs 3RF 90 days Patient Instructions: The patient had an opportunity to ask questions regarding the treatment plan. All questions were answered. Physical exam, labs, and imaging were discussed and reviewed in detail. As well as risks, benefits, and discussion of treatment choices. No major barriers to understanding were identified. The patient expressed understanding and agreement with the above treatment plan. The patient was made aware they should contact our office by phone for worsening of their current condition, the appearance of new symptoms, or with any questions or concerns. Compliance is encouraged with any medications and follow up testing that is ordered. It is a privilege to be allowed the opportunity to participate in? your urological care.? Again, if you have any questions or concerns If you have any questions or concerns please do not hesitate to contact me. The office is [phone]. This note is constructed using voice recognition software. While every effort has been made to ensure accuracy electric pile driver operator errors may have been included. Yours sincerely, SAÚL Le Coding Level of Care Code Tele Est Pt Level 3 (90023) Diagnoses Fatigue R53.83 Enlarged prostate N40.0 History of urinary hesitancy Z87.898 Urinary frequency R35.0 Urinary urgency R39.15 Lower urinary tract symptoms R39.9 Nocturia R35.1
--- OUTSIDE RECORDS SUMMARY | 2025-03-13 12:29 | XMS_ITS | Clinical Summary ---
Author Organization [facility] Address [address] [place] [address] Care Team Providers Care Line Assembler Name Role Phone Unavailable Primary Care Provider [...]
== END 2025-03-13 12:11 | disposition home or self-care (01) ==
LOC: HO.HUSH 11:59
PROVIDERS: PCP Internal Medicine; Visit Provider Nurse Practitioner Family
DX: R53.83 Other fatigue (principal); N40.0 Benign prostatic hyperplasia without lower urinary tract symptoms; Z87.898 Personal history of other specified conditions; R35.0 Frequency of micturition; R39.15 Urgency of urination; R39.9 Unspecified symptoms and signs involving the genitourinary system; R35.1 Nocturia
CPT/HCPCS: 99213